=== PATIENT | female | born 2000 | race Caucasian/White ===

== ENCOUNTER → 2019-04-15 09:16 | Outpatient (BNVA) | payer OTHER, MEDICAID, SELFPAY | PROVIDERS: Family Provider Family Medicine; PCP Family Medicine; Visit Provider Nurse Practitioner Women's Health | DX: O99.89 Other specified diseases and conditions complicating pregnancy, childbirth and the puerperium (principal); Z04.89 Encounter for examination and observation for other specified reasons; R82.71 Bacteriuria; O21.9 Vomiting of pregnancy, unspecified | CPT/HCPCS: 84315 ==

== ENCOUNTER 2019-04-21 07:10 | Emergency (ER) | payer OTHER, MEDICAID, SELFPAY ==
[2019-04-21 07:16] VITALS: BMI 30.9
[2019-04-21 07:19] VITALS: BP 114/80; PULSE 108; RESP 16; TEMP 36.5; O2SAT 100
--- NOTE | 2019-04-21 07:30 | XR_ITS ---
WS: [id number] LEFT WRIST: 3 VIEW(S) TECHNIQUE: PA, oblique and lateral. HISTORY: fall/pain COMPARISON: 10/27/2014 No acute fracture or dislocation. There is a lucency through the distal navicular which does appear t o extend beyond the scaphoid. Additional imaging also submitted on the same day was negative for frac ture. No joint space abnormality. No soft tissue swelling. XR/XR wrist LT min 3V* [id number] IMPRESSION: Negative LEFT wrist.
--- NOTE | 2019-04-21 07:31 | ED_ITS ---
HPI - Extremity Problem General: Chief complaint: Extremity Injury, Upper Stated complaint: Left arm pain Time Seen by Provider: 04/21/19 07:16 History of Present Illness: HPI Narrative: 19-year-old female who comes in with left wrist pain after a fall while on the way to her car at home. She is approximately 24 to 26 weeks gestation she is not completely sure of the exact number of weeks. She denies any other injury when she fell she has some moderate swelling of her left wrist she has normal sensation is able to flex and extend at the base of the first metacarpal there is noticeable swelling and discomfort no obvious deformity. MD Complaint: extremity pain, extremity swelling and joint paint Onset (ago): hour(s) (Approximately 1 hour ago) Pain Consistency: constant Location: left and upper extremity (Wrist) Quality: aching Radiation: none Relieving factors: immobilization, elevation and rest Exacerbating factors: range of motion and palpation Associated symptoms: Reports no associated symptoms; Deny chest pain, fever(s) or rash Review of Systems Const: Denies: fever, chills, body aches, change in appetite, fatigue or malaise ENMT: Denies: throat pain, ear pain, nasal discharge or nasal congestion Card: Denies: chest pain, edema, shortness of breath on exertion or shortness of breath when lying down Resp: Denies: shortness of breath, productive cough or non-productive cough GI: Denies: abdominal pain, nausea, vomiting, vomiting blood, coffee grounds in vomit, diarrhea, constipation, bloating, blood in stool or black tarry stool : Denies: flank pain, difficulty urinating, painful urination, urinary frequency or urinary urgency Musc: Reports: extremity pain (Right wrist) Skin/Breast: Denies: rash or itching PFSH ED PFSH: Statuses (acute, chronic, etc) shown below reflect problem list status as previously entered and may not be historically accurate Medical History Asymptomatic bacteriuria during (Acute) Encounter for anatomic survey (Acute) Patient denies medical problems (Acute) Patient denies history of PE/DVT/clotting disorders, asthma, lung, liver heart, thyroid, kidney disease, hypertension or diabetes. Denies HSV for partner. PCP: Dr. 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 [employer] Additional social history: Well balanced diet Physical Exam Const: COMMON NORMALS: no apparent distress GENERAL APPEARANCE: cooperative and comfortable ORIENTATION/CONSCIOUSNESS: Yes awake, Yes oriented to person, Yes oriented to place and Yes oriented to time HENMT: COMMON NORMALS: normocephalic, head/scalp atraumatic, hearing grossly normal bilaterally, external ears normal, EAC's normal, TM's normal bilaterally, nasal mucous membranes and turbinates normal, moist oral mucous membranes and oropharynx normal HEAD & SCALP: normocephalic and atraumatic NOSE: nasal mucous membranes and turbinates normal EXTERNAL EAR: Yes external ears normal EXTERNAL AUDITORY CANAL: EAC's normal TYMPANIC MEMBRANE: TM's normal bilaterally Eye: COMMON NORMALS: PERRL, EOMs intact bilaterally, conjunctivae normal and no scleral icterus CONJUNCTIVA: Yes conjunctivae normal PUPIL: Yes PERRL Neck/C-Spine: COMMON NORMALS: full ROM, no lymphadenopathy, supple and no JVD Lymph: LYMPHATIC: no lymphadenopathy noted and no lymphedema noted Resp: COMMON NORMALS: normal respiratory effort, no retractions, no use of accessory muscles and clear to auscultation bilaterally AUSCULTATION: clear to auscultation bilaterally Cardio: COMMON NORMALS: no JVD, regular rate, regular rhythm and no murmurs RATE: regular rate RHYTHM: regular rhythm Extremity: COMMON NORMALS: no calf tenderness and no pedal edema RIGHT UPPER EXTREMITY: Yes wrist (Moderate swelling and discomfort at the base of the first metacarpal no pain in the anatomical snuffbox no pain with axial loading mild discomfort with flexion at the wrist. Pain is localized over the scapholunate area. X-rays do not show any fracture.) Neuro: SENSORIUM/ORIENTATION: Yes oriented to person, Yes oriented to place and Yes oriented to time Skin: COMMON NORMALS: no rashes or lesions noted GENERAL SKIN EXAM: no rashes or lesions noted Course Vital Signs: Vital signs: Vital Signs Temperature 97.7 F 04/21/19 07:19 Pulse Rate 84 04/21/19 08:23 Respiratory Rate 18 04/21/19 08:23 Blood Pressure 132/75 04/21/19 08:23 Pulse Oximetry 98 04/21/19 08:23 Discharge Plan Discharge Patient Disposition: Home, Self-Care Clinical Impression: Sprain and strain of left wrist Condition: Stable Prescriptions: No Action prenat.vits,maxx,[id number]-ibwcl Tablet 1 tab PO DAILY RF: 0 promethazine 25 mg tablet 25 mg PO TID PRNRF: 0 Referrals: Jazmine Castro DO [Primary Care Provider] - Activity Restrictions/Additional Instructions: Wrist brace as needed ice elevate [id number] Tylenol if not improving follow-up with your primary care physician for reevaluation. Discharge Date/Time: 04/21/19 08:23 Coding Level of Care Code ED Director Of Teenage Activities for [facility]
--- NOTE | 2019-04-21 07:34 | XR_ITS ---
WS: [id number] LEFT WRIST/scaphoid: 2 VIEW(S) TECHNIQUE: 2 views of the scaphoid are submitted. HISTORY: fall pain COMPARISON: None available. No acute fracture or dislocation. No joint space abnormality. No soft tissue swelling. XR/XR wrist LT w scaphoid [id number] IMPRESSION: No scaphoid fracture identified.
[2019-04-21 08:23] VITALS: BP 132/75; PULSE 84; RESP 18; O2SAT 98
== END 2019-04-21 08:23 | disposition home or self-care (01) ==
PROVIDERS: Emergency Provider Family Medicine; Family Provider Family Medicine; PCP Family Medicine
DX: O9A.212 Injury, poisoning and certain other consequences of external causes complicating pregnancy, second trimester (principal); S63.502A Unspecified sprain of left wrist, initial encounter; S66.912A Strain of unspecified muscle, fascia and tendon at wrist and hand level, left hand, initial encounter; Z3A.24 24 weeks gestation of pregnancy; W19.XXXA Unspecified fall, initial encounter
CPT/HCPCS: 73110; 99282

== ENCOUNTER → 2019-04-29 08:10 | Outpatient (BNVA) | payer OTHER, MEDICAID, SELFPAY | PROVIDERS: Family Provider Family Medicine; PCP Family Medicine; Visit Provider Obstetrics & Gynecology | DX: Z34.02 Encounter for supervision of normal first pregnancy, second trimester (principal) | CPT/HCPCS: 76816 ==

== ENCOUNTER → 2019-05-13 12:54 | Outpatient (BNVA) | payer OTHER, MEDICAID, SELFPAY | PROVIDERS: Family Provider Family Medicine; PCP Family Medicine; Visit Provider Obstetrics & Gynecology Female Pelvic Medicine and Reconstructive Surgery | DX: O36.5930 Maternal care for other known or suspected poor fetal growth, third trimester, not applicable or unspecified (principal); Z3A.28 28 weeks gestation of pregnancy; O99.89 Other specified diseases and conditions complicating pregnancy, childbirth and the puerperium | CPT/HCPCS: 82950; 84315; 85027 ==

== ENCOUNTER → 2019-05-27 10:45 | Outpatient (BNVA) | payer OTHER, MEDICAID, SELFPAY | PROVIDERS: Family Provider Family Medicine; PCP Family Medicine; Visit Provider Obstetrics & Gynecology Female Pelvic Medicine and Reconstructive Surgery | DX: Z34.02 Encounter for supervision of normal first pregnancy, second trimester (principal) | CPT/HCPCS: 81003 ==

== ENCOUNTER → 2019-06-03 13:10 | Outpatient (BNVA) | payer OTHER, MEDICAID, SELFPAY | PROVIDERS: Family Provider Family Medicine; PCP Family Medicine; Visit Provider Obstetrics & Gynecology | DX: Z36.89 Encounter for other specified antenatal screening (principal); Z3A.33 33 weeks gestation of pregnancy | CPT/HCPCS: 76816 ==

== ENCOUNTER → 2019-06-10 14:38 | Outpatient (BNVA) | payer OTHER, MEDICAID, SELFPAY | PROVIDERS: Family Provider Family Medicine; PCP Family Medicine; Referring Provider Obstetrics & Gynecology; Visit Provider Obstetrics & Gynecology | DX: Z36.89 Encounter for other specified antenatal screening (principal) | CPT/HCPCS: 76815 ==

== ENCOUNTER → 2019-06-13 08:03 | Outpatient (BNVA) | payer OTHER, MEDICAID, SELFPAY | PROVIDERS: Family Provider Family Medicine; PCP Family Medicine; Visit Provider Obstetrics & Gynecology | DX: Z01.89 Encounter for other specified special examinations (principal) | CPT/HCPCS: 84315 ==

== ENCOUNTER → 2019-06-17 15:40 | Outpatient (BNVA) | payer OTHER, MEDICAID, SELFPAY | PROVIDERS: Family Provider Family Medicine; PCP Family Medicine; Referring Provider Obstetrics & Gynecology; Visit Provider Obstetrics & Gynecology | DX: Z36.89 Encounter for other specified antenatal screening (principal) | CPT/HCPCS: 76815 ==

== ENCOUNTER → 2019-06-29 09:00 | Outpatient (BNVA) | payer OTHER, MEDICAID, SELFPAY | PROVIDERS: Visit Provider Obstetrics & Gynecology | DX: Z34.93 Encounter for supervision of normal pregnancy, unspecified, third trimester (principal); Z3A.34 34 weeks gestation of pregnancy | CPT/HCPCS: 76815 ==

== ENCOUNTER 2019-06-29 10:30 | Outpatient (CLI) | payer OTHER, MEDICAID, SELFPAY ==
[2019-06-29] VITALS (10 sets, daily range): BP systolic 102–142; BP diastolic 61–76; PULSE 65–100; RESP 18; TEMP 36.7; BMI 32.5
[2019-06-29 12:02] LABS: Basophils % 0.3 %; Eosinophils # 0.2 10^3/uL (0.0-0.8); Eosinophils % 3.4 %; Hematocrit 36.6 % (37.0-47.0); Lymphocytes # 1.4 10^3/uL (1.5-6.5); Lymphocytes % 19.9 %; Mean Corpuscular HGB Conc 32.8 g/dL (30.0-36.0); Mean Corpuscular Hemoglobin 28.2 pg (28.0-34.0); Mean Corpuscular Volume 86.1 fL (81-99); Mean Platelet Volume 11.2 fL (7.4-10.4); Monocytes # 0.6 10^3/uL (0.2-0.9); Monocytes % 7.8 %; Neutrophils # 4.8 10^3/uL (1.8-8.0); Neutrophils % 67.3 %; Nucleated Red Blood Cells % 0 %; Platelet Count 239 10^3/cmm (130-400); Red Blood Count 4.25 10^6/uL (4.1-5.3); Red Cell Distribution Width 12.3 % (12.1-15.1); White Blood Count 7.1 10^3/uL (4.5-13.0)
[2019-06-29 12:07] LABS: Specific Gravity, Urine 1.015 (1.005-1.030); Urine Appearance Clear (CLEAR); Urine Color Straw (Yellow)
[2019-06-29 12:08] LABS: Add Urine Microscopic? YES; Bilirubin Urine Neg (NEGATIVE); Blood Urine Neg (Negative); Glucose Urine UA Trace (Normal); Ketones Urine Negative (Negative); Leukocyte Esterase Urine 2+ (Negative); Nitrate Urine Negative (Negative); Protein Urine Neg (Negative); Urobilinogen Urine Norm (Negative)
[2019-06-29 12:43] LABS: Alanine Aminotransferase 15 U/L (0-33); Albumin Level 3.7 g/dL (3.5-5.2); Alkaline Phosphatase 180 IU/L (35-105); Anion Gap 13.2 (5-19); Aspartate Amino Transferase 22 U/L (0-32); Blood Urea Nitrogen 4 mg/dL (6-20); Calcium 9.1 mg/dL (8.5-10.5); Carbon Dioxide 22 mmol/L (22-29); Chloride 102 mmol/L (98-107); Globulin 3.6 g/dL (1.3-4.6); Glomerular Filtration Rate 157.3 mL/min (90-130); Glucose 91 mg/dL (65-115); Osmolality Calculated 273 mOsm/kg (285-295); Potassium 3.2 mmol/L (3.5-5.1); Sodium 134 mmol/L (136-145); Total Bilirubin 0.5 mg/dL (0.15-1.2); Total Protein 7.3 g/dL (6.6-8.7); Uric Acid 4.1 mg/dL (2.4-5.7)
[2019-06-29 12:53] LABS: Urine Creatinine 94 mg/dL (28-217); Urine Protein Random 7 mg/dL
[2019-06-29 12:57] LABS: UPRO/UCREAT Ratio 0.07 mg/mg CR
[2019-06-29 13:08] LABS: Add Urine Culture? No; Bacteria Urine 1+; Squamous Epithelial Cell Urine 55-80 (0-5); WBC Urine 0-4 /hpf (0-5)
--- NOTE | 2019-06-29 15:41 | P.TNLD_ITS ---
OB L&D Triage Visit Information: Date of evaluation: 06/29/19 Reason for evaluation: other Comments/Additional reason(s) for visit: pt with elevated BPs in office 160-170/100 to L&D for labs and observation. In L&D BPs normal, RNST, normal l abs Patient without Headache, visual changes RUQ pain, n&v HAS GOOD MOVEMENT. Evaluation: Baseline heart rate: 140 Variability: Moderate (11-25) monitor accelerations: Present 15x15 monitor decelerations: None Laboratory results: Laboratory Tests 06/29/19 06/29/19 06/29/19 11:39 11:39 11:45 WBC RBC Hgb Hct MCV MCH MCHC RDW Plt Count MPV Neut % (Auto) Lymph % (Auto) [place] % (Auto) Eos % (Auto) Baso % (Auto) Neut # (Auto) Lymph # (Auto) [place] # (Auto) Eos # (Auto) Baso # (Auto) Nucleated RBC % (a uto) Nucleated RBCs # Sodium 134 L Potassium 3.2 L Chloride 102 Carbon Dioxide 22 Anion Gap 13.2 BUN 4 L Creatinine 0.5 GFR Calculation 157.3 H Glucose 91 Calculated Osmolal ity 273 L Uric Acid 4.1 Calcium 9.1 Total Bilirubin 0.5 AST 22 ALT 15 Alkaline Phosphata se 180 H Total Protein 7.3 Albumin 3.7 Globulin 3.6 Urine Color Straw Urine Appearance Clear Urine pH 6.0 Ur Specific Gravit y 1.015 Urine Protein Neg Urine Glucose (UA) Trace H Urine Ketones Negative Urine Blood Neg Urine Nitrate Negative Urine Bilirubin Neg Urine Urobilinogen Norm Ur Leukocyte Kelly ase 2+ H Urine RBC None Urine WBC 0-4 H Ur Squamous Epith Cells 55-80 H Urine Bacteria 1+ H U Random Total Pro tein 7 Urine Creatinine 94 Protein/Creatinin Ratio 0.07 06/29/19 11:45 WBC 7.1 RBC 4.25 Hgb 12.0 Hct 36.6 L MCV 86.1 MCH 28.2 MCHC 32.8 RDW 12.3 Plt Count 239 MPV 11.2 H Neut % (Auto) 67.3 Lymph % (Auto) 19.9 [place] % (Auto) 7.8 Eos % (Auto) 3.4 Baso % (Auto) 0.3 Neut # (Auto) 4.8 Lymph # (Auto) 1.4 L [place] # (Auto) 0.6 Eos # (Auto) 0.2 Baso # (Auto) 0.0 Nucleated RBC % (a uto) 0 Nucleated RBCs # 0.0 Sodium Potassium Chloride Carbon Dioxide Anion Gap BUN Creatinine GFR Calculation Glucose Calculated Osmolal ity Uric Acid Calcium Total Bilirubin AST ALT Alkaline Phosphata se Total Protein Albumin Globulin Urine Color Urine Appearance Urine pH Ur Specific Gravit y Urine Protein Urine Glucose (UA) Urine Ketones Urine Blood Urine Nitrate Urine Bilirubin Urine Urobilinogen Ur Leukocyte Kelly ase Urine RBC Urine WBC Ur Squamous Epith Cells Urine Bacteria U Random Total Pro tein Urine Creatinine Protein/Creatinin Ratio Vital signs: Vital Signs - 24 hr 06/29/19 11:23 06/29/19 11:40 06/29/19 11:52 Temperature Pulse Rate 88 65 67 Respiratory Rate Blood Pressure 110/72 142/75 135/75 06/29/19 12:07 06/29/19 12:22 06/29/19 12:37 Temperature Pulse Rate 97 86 96 Respiratory Rate Blood Pressure 113/76 108/68 102/68 06/29/19 12:52 06/29/19 13:07 06/29/19 13:22 Temperature Pulse Rate 100 78 90 Respiratory Rate Blood Pressure 125/75 121/61 111/68 06/29/19 13:30 Temperature 98.0 F Pulse Rate 90 Respiratory Rate 18 Blood Pressure 111/68 Comments: pe: a&o nad heent WNL lUNGS cta hEART rsn aBD gravid, soft NT, no RUQ tenderness ext no swelling Patella DTR 2/4 Care LOTUS Calculator Estimated Delivery Date Method Current WG Current Estimate 08/04/19 LMP (Certain) 34w 6d Expected Delivery Route/Plan Vaginal Specific Issues/Plans Polyhydramnios diagnosed at 30 weeks-mild- OB Visit Log Initial Weight: 80.739 kg Date -?-?-?-?-?-?-?-?-?-?-?- EGA Weight BP Albumin -?-?-?-?-?-?-?-?-?-?-?-?- Glucose Nitrate -?-?--?-?-?-?-?-?-?-?-?-?- Blood Fun Ht PRES HR MVMT -?--?-?-?-?-?-?-?-?-?-?-?- Edema Dilation Effacement -?-?-?-?-?-?-?-?-?-?-?-?- Station 12/28/18 -?-?-?-?-?-?-?-?-?-?-?- 8w 5d 80.739 kg (+0 g) 122/80 neg -?-?-?-?-?-?-?-?-?-?-?-?- neg -?-?-?-?-?-?-?-?-?-?-?-?- -?-?-?-?-?-?-?-?-?-?-?-?- absent Not examined Not examined -?-?-?-?-?-?-?-?-?-?-?-?- 01/10/19 -?-?-?-?-?-?-?-?-?-?-?- 10w 4d 80.739 kg (+0 g) 132/80 neg -?-?-?-?-?-?-?-?-?-?-?-?- neg -?-?-?-?-?-?-?-?-?-?-?-?- 164 -?-?-?-?-?-?-?-?-?-?-?-?- absent Not examined Not examined -?-?-?-?-?-?-?-?-?-?-?-?- 01/24/19 -?-?-?-?-?-?-?-?-?-?-?- 12w 4d 79.832 kg (-907.185 g) 112/76 neg -?-?-?-?-?-?-?-?-?-?-?-?- neg -?-?-?-?-?-?-?-?-?-?-?-?- 149 -?-?-?-?-?-?-?-?-?-?-?-?- absent Closed Uneffaced -?-?-?-?-?-?-?-?-?-?-?-?- 02/22/19 -?-?-?-?-?-?-?-?-?-?-?- 16w 5d 83.007 kg (+2.268 kg) 116/80 neg -?-?-?-?-?-?-?-?-?-?-?-?- neg -?-?-?-?-?-?-?-?-?-?-?-?- 141 -?-?-?-?-?-?-?-?-?-?-?-?- absent Not examined Not examined -?-?-?-?-?-?-?-?-?-?-?-?- 03/21/19 -?-?-?-?-?-?-?-?-?-?-?- 20w 4d 86.092 kg (+5.352 kg) 118/72 neg -?-?-?-?-?-?-?-?-?-?-?-?- neg -?-?-?-?-?-?-?-?-?-?-?-?- 20 150 Not detected -?-?-?-?-?-?-?-?-?-?-?-?- absent Not examined Not examined -?-?-?-?-?-?-?-?-?-?-?-?- 04/13/19 -?-?-?-?-?-?-?-?-?-?-?- 23w 6d -?-?-?-?-?-?-?-?-?-?-?-?- -?-?-?-?-?-?-?-?-?-?-?-?- -?-?-?-?-?-?-?-?-?-?-?-?- -?-?-?-?-?-?-?-?-?-?-?-?- 04/15/19 -?-?-?-?-?-?-?-?-?-?-?- 24w 1d 89.811 kg (+9.072 kg) 128/90 Neg (Negativ e) -?-?-?-?-?-?-?-?-?-?-?-?- Norm (Normal) Negative (Negat sg) -?-?-?-?-?-?-?-?-?-?-?-?- 25 140 active -?-?-?-?-?-?-?-?-?-?-?-?- absent n/a -?-?-?-?-?-?-?-?-?-?-?-?- 05/13/19 -?-?-?-?-?-?-?-?-?-?-?- 28w 1d 89.811 kg (+9.072 kg) 108/74 Neg (Negativ e) -?-?-?-?-?-?-?-?-?-?-?-?- Norm (Normal) Negative (Negat sg) -?-?-?-?-?-?-?-?-?-?-?-?- 30 152 active -?-?-?-?-?-?-?-?-?-?-?-?- 1+ absent -?-?-?-?-?-?-?-?-?-?-?-?- 05/27/19 -?-?--?-?-?-?-?-?-?-?-?- 30w 1d 93.44 kg (+12.701 kg) 132/80 Neg (Negati ve) -?-?-?-?-?-?-?-?-?-?-?-?- Norm (Normal) Negative (Negat sg) -?-?-?-?-?-?-?-?-?-?-?-?- Neg (Negative) 33 Vertex 127 active -?-?-?-?-?-?-?-?-?-?-?-?- absent n/a -?-?-?-?-?-?-?-?-?-?-?-?- 06/13/19 -?-?-?-?-?-?-?-?-?-?-?- 32w 4d 93.894 kg (+13.154 kg) 136/82 Neg (Negati ve) -?-?-?-?-?-?-?-?-?-?-?-?- Norm (Normal) Negative (Negat sg) -?-?-?-?-?-?-?-?-?-?-?-?- Neg (Negative) 33 143 act sg -?-?-?-?-?-?-?-?-?-?-?-?- absent N/A -?-?-?-?-?-?-?-?-?-?-?-?- 06/29/19 -?-?-?-?-?-?-?-?-?-?-?- 34w 6d 94.801 kg (+14.061 kg) 164/110 172/108 172/114 Neg (Negative) -?-?-?-?-?-?-?-?-?-?-?-?- Norm (Normal) Negative (Negat sg) -?-?-?-?-?-?-?-?-?-?-?-?- Neg (Negative) 34.5 - 129 active -?-?-?-?-?-?-?-?-?-?-?-?- n/a -?-?-?-?-?-?-?-?-?-?-?-?- 06/29/19 -?-?-?-?-?-?-?-?-?-?-?- 34w 6d 94.347 kg (+13.608 kg) 110/72 142/75 135/75 113/76 108/68 102/68 125/75 121/61 111/68 111/68 Neg (Negative) -?-?-?-?-?-?-?-?-?-?-?-?- Trace (Normal) H Negative (Ne gative) -?-?-?-?-?-?-?-?-?-?-?-?- Neg (Negative) 130 -?-?-?-?-?-?-?-?-?-?-?-?- -?-?-?-?-?-?-?-?-?-?-?-?- Notes Visit Date: 06/29/19 No visit notes to display Visit Date: 06/29/19 No visit notes to display Visit Date: 06/13/19 PERRY @ 32w4d------> no complaints; asymptomatic bacteria's-status post negative test of cure-no intervention; questionable concern about asymmetrical growth-largely within normal limits based on sonogram on 06/03/2019- growth 69 percentile-no concern for IUGR at this time; mild polyhydramnios with [employer] staying stable between 89-55-ogqbhhz jbfuhojhx-vkyryp-fq RAMIRO in 1 week; Tdap recommended, contraception, circumcision and encapsulator discussed briefl y-we will reassess at next visit; weight gain goals reviewed; discomforts of and symptomatic management discussed. Shy Mcgraw MD on 06/13/19 Visit Date: 05/27/19 No visit notes to display Visit Date: 05/13/19 No visit notes to display Visit Date: 04/15/19 PERRY and 24.1 WG-----> -asymptomatic bacteriuria with test of cure at 16 weeks; resolved. Nonvisualized anatomy during 20 weeks sono; repeat scan at 26 weeks to follow-up on four-chamber heart and placental assessment. Flu vaccine discussed and encouraged. labor precautions and kick counts discussed. education classes discussed and encouraged; schedule provided. Symptomology of late second trimester discussed. BC, GCT at next visit Jazmine Pickens APN, GLENN on 04/15/19 Visit Date: 04/13/19 Preload Jazmine Dominguez RN on 04/13/19 Visit Date: 03/21/19 PERRY at 20 4/7 weeks. The patient was counseled regarding care, signs and symptoms of labor. Visit Date: 02/22/19 PERRY @ 16.5 WG - UTI early in ; LASHON today - nausea; managed with prn phenergan; continue for now - SAB precautions discussed - QUAD PANORAMA; declined - GC/chlamydia were negative; discussed today - Flu vaccine discussed and encouraged now - Anatomy scan at 20-22 weeks Visit Date: 01/24/19 OB exam at 12 weeks and 4 days----> no complaints; nausea and vomiting improved with medication; asymptomatic bacteriuria status post antibiotics-test of cure at 16 weeks; labs normal; gonorrhea and Chlamydia done today Visit Date: 01/10/19 Initial OB visit at 10 weeks and 4 days-----> unsure LMP-dating sonogram ordered; labs drawn; gonorrhea and Chlamydia at next visit; declined cystic fibrosis and NIPT; nausea and vomiting-description medication called in-call in one week with update on symptoms Visit Date: 12/28/18 OBI at 8.5 WG-----------> 18 y/o with LMP of 10/28/18 (unsure) and EDC of 08/04/2019 based this guestimate lmp. - unknown LMP; knows her last period was around 10/28 to 11/06;EDC based off 10/28 lmp;sarah will discuss with her next visit - mild nausea; dietary medical management discussed. -Ob packet provided. Reviewed routine vist schedule, labs, approved medications in , discussed the importance of avoiding nicotine/alcohol/drugs and the effects this has on her and the , and when to notify the doctor. Medical and obstetrical history reviewed. ? -Continue vitamins. - labs at next visit; discussed NIPT, QUAD, AFP, CF. All questions answered to her satisfaction. Greater than 50% of the visit was spent in counseling and coordinating obstetrical care. Final Diagnosis Final Diagnosis (1) Elevated blood pressure reading: Plan: patent with elevated ABP in office, normal n L&D. home with BP cuff, take BP BID anf record. rest at home, no wwork for 72 hours. follow up in office Thursday. Status: Acute Code(s): R03.0 - Elevated blood-pressure reading, without diagnosis of hypertension (2) related conditions, unspecified, third trimester: Status: Acute Code(s): O26.93 - related conditions, unspecified, third trimester Coding Level of Care Code Acute Hardware Test Engineer for Chg Fwd History Expanded Problem Focused Exam Expanded Problem Focused Medical Decision Making Moderate Complexity Diagnoses Elevated blood pressure reading R03.0 related conditions, unspecified, third trimester O26.93 Time Spent (min) 35 Comment >50% face-face time counseling possible hypertension in .
== END 2019-06-29 13:30 | disposition home or self-care (01) ==
LOC: OPOB 10:45 → OBGYN 10:46
PROVIDERS: Visit Provider Obstetrics & Gynecology Female Pelvic Medicine and Reconstructive Surgery
DX: O16.9 Unspecified maternal hypertension, unspecified trimester (principal); Z3A.00 Weeks of gestation of pregnancy not specified
CPT/HCPCS: 12345; 36415; 59025; 80053; 81001; 82570; 84156; 84315; 84550; 85025; 99211

== ENCOUNTER → 2019-07-06 08:58 | Outpatient (BNVA) | payer OTHER, MEDICAID, SELFPAY | PROVIDERS: Visit Provider Obstetrics & Gynecology | DX: O40.9XX0 Polyhydramnios, unspecified trimester, not applicable or unspecified (principal) | CPT/HCPCS: 76815 ==

== ENCOUNTER → 2019-07-13 09:50 | Outpatient (BNVA) | payer OTHER, MEDICAID, SELFPAY | PROVIDERS: Visit Provider Obstetrics & Gynecology | DX: Z34.93 Encounter for supervision of normal pregnancy, unspecified, third trimester (principal); Z34.90 Encounter for supervision of normal pregnancy, unspecified, unspecified trimester; Z34.02 Encounter for supervision of normal first pregnancy, second trimester; R03.0 Elevated blood-pressure reading, without diagnosis of hypertension; O40.9XX0 Polyhydramnios, unspecified trimester, not applicable or unspecified | CPT/HCPCS: 84315; 87081 ==

== ENCOUNTER → 2019-07-20 09:41 | Outpatient (BNVA) | payer OTHER, MEDICAID, SELFPAY | PROVIDERS: Visit Provider Obstetrics & Gynecology | DX: O40.9XX0 Polyhydramnios, unspecified trimester, not applicable or unspecified (principal); R03.0 Elevated blood-pressure reading, without diagnosis of hypertension | CPT/HCPCS: 81000 ==

== ENCOUNTER → 2019-07-26 11:59 | Outpatient (BNVA) | payer OTHER, MEDICAID, SELFPAY | PROVIDERS: Visit Provider Obstetrics & Gynecology | DX: Z34.02 Encounter for supervision of normal first pregnancy, second trimester (principal); O40.9XX0 Polyhydramnios, unspecified trimester, not applicable or unspecified; R03.0 Elevated blood-pressure reading, without diagnosis of hypertension | CPT/HCPCS: 81000 ==

== ENCOUNTER 2019-08-01 18:59 | Inpatient (IN) | payer OTHER, MEDICAID, SELFPAY ==
[2019-08-01] VITALS (18 sets, daily range): BP systolic 0–132; BP diastolic 0–78; PULSE 55–94; RESP 16; TEMP 36.8; BMI 33.6
[2019-08-01] MEDS: lactated ringers 1,000 ML 999 ML IV (20:25)
[2019-08-01 20:38] LABS: Basophils % 0.4 %; Eosinophils # 0.4 10^3/uL (0.0-0.8); Eosinophils % 4.2 %; Hematocrit 33.5 % (37.0-47.0); Hemoglobin 11.2 g/dL (11.5-15.3); Lymphocytes # 2.5 10^3/uL (1.5-6.5); Mean Corpuscular HGB Conc 33.4 g/dL (30.0-36.0); Mean Corpuscular Hemoglobin 27.7 pg (28.0-34.0); Mean Corpuscular Volume 82.9 fL (81-99); Mean Platelet Volume 11.9 fL (7.4-10.4); Monocytes # 0.9 10^3/uL (0.2-0.9); Monocytes % 9.8 %; Neutrophils # 5.6 10^3/uL (1.8-8.0); Neutrophils % 58.6 %; Nucleated Red Blood Cells % 0 %; Platelet Count 211 10^3/cmm (130-400); Red Blood Count 4.04 10^6/uL (4.1-5.3); Red Cell Distribution Width 13.1 % (12.1-15.1); White Blood Count 9.6 10^3/uL (4.5-13.0)
[2019-08-01] MEDS: dextrose 5%-lactated ringers 1,000 ML 75 ML IV (20:59)
[2019-08-01] MEDS: miSOPROStol 100 mcg tablet 25 MCG VAGINAL (20:59)
[2019-08-02] VITALS (150 sets, daily range): BP systolic 0–141; BP diastolic 0–79; PULSE 53–90; RESP 16–18; TEMP 36.7–36.8; O2SAT 84–100
[2019-08-02] MEDS: miSOPROStol 100 mcg tablet 25 MCG VAGINAL ×2 (01:01→07:45)
[2019-08-02] MEDS: morphine 4 mg/mL SDV 1 mL 8 MG IM (01:14)
[2019-08-02] MEDS: promethazine 25 mg/mL SDV 1 mL IM (01:14)
--- NOTE | 2019-08-02 07:42 | P.PN_ITS ---
Subjective Subjective: Interval history: Ms. Pollack is a 19-year-old 1 para 0 at 39 weeks and 5 days gestation who presented to labor and delivery for cervical ripening on 08/01/2019. She had a very unfavorable cervix-fingertip, 20% effaced and firm and at her last visit we had discussed the advantages versus disadvantages of cervical ripening versus allowing time for the cervix to soften naturally. Patient wanted to try cervical ripening as she was disheartened by the fact that her cervix was not very favorable. When she presented to labor and delivery on 08/01/2019 she had made very minimal cervical change and was fingertip, 20% and -3 station, cephalic. Cervical ripening was started with Cytotec and she received a total of 3 doses of Cytotec-last dose being placed at 7:30 AM on 08/02/2019. During this time she made some cervical change and prior to the third dose of Cytotec she was 1 cm, 50% and -3 station and the cervix was average in consistency. tracing had been overall category 1 except for. At about 3 AM after patient use the bathroom but there was some area of minimal variability. This was thought to be possibly secondary to the Phenergan morphine sleeper that the patient received and tracing improved to a category 1 tracing with oxygen and position changes. Vitals/I&O/Wt Last Vital Signs Temp 98.2 F 08/02/19 05:24 Pulse 72 08/02/19 07:38 Resp 16 08/02/19 05:24 BP 102/57 08/02/19 07:38 08/01/19 08/02/19 08/02/19 22:59 06:59 14:59 Intake Total 690.25 / 690.25 412.5 / 1102.75 Balance 690.25 / 690.25 412.5 / 1102.75 Weight last 48 hrs Weight 215 lb Physical Exam Narrative: EXAM NARRATIVE: Abdomen-gravid, nontender, cephalic by Siva Sterile vaginal exam-1 cm, 50%, -3 station, average consistency EFM-120, moderate variability, accelerations, no decelerations [place]-contractions every 3 to 7 minutes Data : 08/01/19 20:14 A&P Assessment and plan (1) Elective induction of labor planned: Status: Acute Additional A&P Information -19-year-old 1 para 0 at 39 weeks and 5 days gestation -Elective induction of labor/cervical ripening due to unfavorable cervix -GBS negative -Has made some cervical change and some cervical ripening overnight with 2 doses of Cytotec however she is definitely not in labor at this time -Reviewed that there was a questionable area of minimal variability overnight however that has since resolved and the tracing has been category 1 thus far. I reviewed the course of cervical ripening with patient. I discussed we can do another 12 hours of medicine and if by 5 PM tonight she is not an active labor and has not made sufficient cervical change I would recommend discharge home and possibly bringing her back in 2 to 4 days for a longer induction of labor. -A lot of time spent counseling and offering support to the patient. -We will place the dose of Cytotec at 7:30 AM and will reassess at 1130 and see what happens. Patient allowed a tray of clears. Attestations Medical Necessity Statement*: Patient undergoing cervical ripening. Currently under observation status however if she make cervical change will be admitted to labor and delivery in labor. If she delivers her care will definitely cross 2 midnights in terms of recovery from delivery. Coding Level of Care Code Acute Sneller Hand for Chg Fwd Diagnoses Elective induction of labor planned Results OB Labs 01/10/2019 Blood type: O positive Antibody screen : Negative Intake CBC: 8.1<14.1/40.2> 226 Cystic fibrosis: Declined Rubella : Immune Hepatitis B surface antigen: Nonreactive Hepatitis C antibody: Nonreactive RPR: Nonreactive HIV: Nonreactive Drug screen: Negative Urine culture: 10,000-20,000 Staphylococcus saprophiticus--prescription Macrobid called in nipt: Declined 01/24/2019 Gonorrhea: negative Chlamydia: negative Pap smear: To be done in 2019 at the age of 20 02/22/2019 Quad screen: Declined Urine culture: Test of cure: 10,000-20,000 mixed colonies; contaminants 05/13/2019 28 week CBC: 8.8 <12.4/37.6>216 GCT: 131 07/13/2019 GBS: negative PAP Pap smear due in December 2019 when she is 20 years old. OB Ultrasound LMP-10/28/2018 LOTUS by LMP-08/04/2019 1) 01/19/2019([facility]-dating) AUA-12w4d LOTUS by sono-07/30/2019 S=D ---------> single live intrauterine , positive heart beat, positive movement, bilateral ovaries appeared normal, no free fluid. 2. 03/18/2020([facility]-anatomy) AUA-20-5/7 WG LOTUS by sono- 07/31/2019. S=D EFW 13 oz (367 g) 73% Normal anatomic survey EXCEPT for poor visualization of heart. Male. Breech. FHR 140 bpm. Anterior placenta without previa. Placental grade 1. Visually normal amniotic fluid volume. [employer] 7.4 cm. Cervix 3.7 cm, closed 3) 04/29/2019([facility]) AUA-27w4d LOTUS by sono-07/25/2019 S=D - single live intrauterine , cephalic, male, anterior grade 1 placenta without previa, FH-137, cervix closed-7 cm, four-chamber view of heart visualized-this completes anatomy review, RAMIRO 23.9 cm, EFW-948 g, 55 percentile. 3 weeks discrepancy between head measurements and abdominal circumference-poss ible IUGR-recommend further monitoring 4) 06/03/2019([facility]-f/u growth) AUA-33w0d LOTUS by sono-07/22/2019 S=D ------> single live intrauterine , cephalic, male, anterior grade 1 placenta without previa, EFW 1895 g, 69th percentile, RAMIRO 25.1 cm, [employer]-8.6 cm-polyhydramnios. Appropriate interval growth since last sonogram. 5) 06/10/2019 ([facility] fluid) -RAMIRO-26.21 cm, [employer]-11.3-stable polyhydramnios. Cephalic, anterior grade 1-2 placenta, cervix closed
[2019-08-02] MEDS: dextrose 5%-lactated ringers 1,000 ML 125 ML IV ×2 (12:09→19:32)
--- NOTE | 2019-08-02 12:49 | P.ANESASSM_ITS ---
Pre-Anesthetic Assessment Pre-Anesthetic Assessment: Height/Weight: Height 1.7 m Weight 97.522 kg Temp Pulse Resp BP 98.3 F 69 17 127/77 08/02/19 10:08 08/02/19 12:17 08/02/19 10:08 08/02/19 12:17 Preop Diagnosis: Intrauterine Proposed Procedure: Labor epidural Familial anesthetic complications: denies Was Beta Arron taken within 24 hours: N/A Last Intake: 02:00 Social: Social History: No alcohol and No tobacco Exam: Pre-Anes Outpt Exam: alert and oriented x 3 Airway: Submandibular: WNL Cervical ROM: WNL MP: 3 History/ROS: No significant history except as noted Pulmonary: Pulmonary: None reported CV/HEM: CV/HEM: HTN and Murmur (at , states no issues now) : : None reported Hepatic: Hepatic: None reported GI: GI: GERD Musc/skel: Musc/skel: None reported Neuropsych: Neuropsych: None reported Anesthetic Plan: ASA status: 2 Anesthesia: Anesthesia Evaluation and Regional (specify below) Meds/Allergies Current Medications: Current Medications Generic Name Dose Route Start Last Admin Trade Name Freq PRN Reason Stop Dose Admin Dextrose/Lactated Ringer's 1,000 mls @ 75 ml s/hr 08/01/19 19:58 08/02/19 12:09 Dextrose 5%-Lact ated Ringers IV 125 mls/hr .[id number] PRN Administration per label comment s PFSH Anesthesia PFSH: Social History Smoking and tobacco status: never smoked Alcohol intake: never Additional social history: - Tobacco use: Denies Alcohol use: Denies Drug use: Denies 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
[2019-08-02] MEDS: oxytocin 30 UNIT/500 ML BAG IV (13:50)
[2019-08-02 16:18] LABS: Actim Prom Positive
[2019-08-02] MEDS: lactated ringers 1,000 ML 999 ML IV (18:10)
[2019-08-02] MEDS: ondansetron 2 mg/ML SDV 2 mL 4 MG IVP (18:15)
--- NOTE | 2019-08-02 18:50 | ANES.PROC ---
Anesthesia Procedures Procedure/Date: 08/02/19 Epidural: Time Out Performed: Yes Consents Signed: Procedure Consent and NPO Consent Consent: requested by attending/covering physician, risks and benefits reviewed and patient agrees to proceed Lumbar Level: L3-L4 Epidural position: sitting Epidural procedure: sterile prep of area, 18 g needle (L3-L4), negative for paresthesia passed, neg for paresthesia, test dose given, 1.5% xylocaine 1:200k epi, 0.2% Ropivacaine bolus ml ( cc), placed PCEA, no systemic response and 0.2% Ropiavacaine @ mls/hr (13 mls/hr ) Additional Comments: ORBBY at 8 cm, catheter threaded to 14 cm at skin. Pt states pain has improved. VSS see OBYX
[2019-08-03] VITALS (21 sets, daily range): BP systolic 0–142; BP diastolic 0–72; PULSE 64–106; RESP 15–18; TEMP 36.7–36.9; O2SAT 97–99
--- NOTE | 2019-08-03 01:09 | PM.DELIVERY ---
 Delivery Note: Date of delivery: August 03, 2019 Pre-delivery diagnoses: Term at 39-5/7 weeks gestation Post-delivery diagnoses: 1. Term at 39-6/7 weeks gestation, 2. Viable male infant. Procedure: Sponataneous vaginal delivery Op report anesthesia: Epidural Delivering Physician: Tomas Brennan MD Estimated blood loss (mL): 150 Pre-Delivery Course: Patient is a 19-year-old white female 1, para 0 with an LMP of 10/28/2018 and an EDC of 08/04/2019 based on LMP and consistent with 12-week ultrasound, which placed her at 39-4/7 weeks gestation at the time of admission. She presented to labor and delivery on 08/01/2019 for Cytotec cervical ripening due to term . She received a total of 3 doses of Cytotec through the night. By around noon the next day she had made very minimal cervical change from a dilation standpoint and was then started on Pitocin. She became more uncomfortable through the afternoon. She had spontaneous rupture of membranes at 15:24 and later had epidural placed. She then rapidly progressed after that and was found to be completely dilated at 20:28. She was too numb to adequately push and as a result epidural was turned down and she labored down on her own. Patient had occasional episodes of decelerations which would resolve with position changes. Delivery: Patient started pushing at 23:31 and delivered at 00:31 on 08/03/2019 as a spontaneous vaginal delivery of an occiput anterior male over an intact perineum under epidural anesthesia. Following delivery of the 's head one loop of nuchal cord was noted and easily reduced. Rest the infant delivered atraumatically with the left shoulder anterior. Infant was placed on the mother's abdomen where it was left in the care of the waiting nurses. It was spontaneously crying. Cord was clamped. It was cut by the reported father of the baby. Cord blood was obtained. Pitocin bolus was started. Placenta delivered intact by simple expression at 00:34. Cervix and vagina were palpated and noted to be intact. The labia were inspected and noted to be intact except for bilateral periurethral lacerations which were superficial and required no repair and a minimal second-degree midline hymenal ring laceration which was bleeding and was repaired with 3-0 Vicryl suture. FINDINGS 1. Viable male infant weighing 7 pounds 5 ounces (3320 g) with a length of 20 inches and Apgars of 8 at 1 minute and 9 at 5 minutes. 2. Three-vessel cord with one loop of nuchal cord noted. 3. Normal-appearing placenta with an eccentric cord insertion. Post-Delivery Status: Mother and infant were left to recover in satisfactory condition. A&P Assessment and plan (1) Elective induction of labor planned: Status: Acute Coding Level of Care Code Acute Vessel Ordinary Seaman for g Fwd Diagnoses Elective induction of labor planned
[2019-08-03] MEDS: lanolin oint 7 gm 1 APPLIC TOPICAL (10:20)
[2019-08-03] MEDS: benzocaine-menthol 78 gm Canister 1 SPRAY TOPICAL (10:20)
[2019-08-03] MEDS: docusate sodium 100 mg Capsule PO ×2 (10:21→21:39)
[2019-08-03] MEDS: prenatal vitamin Capsule 1 CAP PO (10:21)
[2019-08-03 14:31] LABS: Hematocrit 32.4 % (37.0-47.0); Hemoglobin 10.6 g/dL (11.5-15.3); Mean Corpuscular HGB Conc 32.7 g/dL (30.0-36.0); Mean Corpuscular Hemoglobin 27.7 pg (28.0-34.0); Mean Corpuscular Volume 84.6 fL (81-99); Mean Platelet Volume 12.3 fL (7.4-10.4); Platelet Count 198 10^3/cmm (130-400); Red Blood Count 3.83 10^6/uL (4.1-5.3); Red Cell Distribution Width 13.4 % (12.1-15.1); White Blood Count 14.5 10^3/uL (4.5-13.0)
--- NOTE | 2019-08-04 02:40 | PC.NURSE ---
Assisited with getting the baby to latch onto right breast. Baby is sleepy and is not nursing in an aggressive manner. Mom educated on other techniques to get baby to latch onto breast.
[2019-08-04 03:50] VITALS: BP 117/73; PULSE 56; RESP 16; TEMP 36.5; O2SAT 99
--- NOTE | 2019-08-04 07:58 | PM.PN ---
Subjective Subjective: Interval history: Denies any complaints this morning. Reports pain is been well controlled. Denies any lightheadedness or dizziness with ambulation. Denies any shortness of breath or chest pains. Reports tolerating a regular diet without nausea or vomiting. Denies any problems with urination. Reports bleeding is a bout like an average menses in amount. Vitals/I&O/Wt Last Vital Signs Temp 97.7 F 08/04/19 03:50 Pulse 56 L 08/04/19 03:50 Resp 16 08/04/19 03:50 BP 117/73 08/04/19 03:50 Pulse Ox 99 08/04/19 03:50 08/03/19 08/04/19 08/04/19 22:59 06:59 14:59 Intake Total 500 / 1700 800 / 2500 Balance 500 / 1700 800 / 2500 Physical Exam Const: COMMON NORMALS: no apparent distress, average body habitus, alert and well nourished GENERAL APPEARANCE: well developed ORIENTATION/CONSCIOUSNESS: Yes oriented to person, Yes oriented to place and Yes oriented to time Resp: COMMON NORMALS: normal respiratory effort and clear to auscultation bilaterally AUSCULTATION: clear to auscultation bilaterally Cardio: COMMON NORMALS: regular rate, regular rhythm, no gallops and no rub RATE: regular rate RHYTHM: regular rhythm GI: COMMON NORMALS: soft to palpation, non-tender, no hepatosplenomegaly and no masses (Except for nontender uterus, approximately 2 fingerbreadths below umbilicus) AUSCULTATION: Yes normoactive bowel sounds PALPATION: Yes soft, Yes no hepatosplenomegaly and No hernia : EXTERNAL FEMALE EXAM: No hernia Extremity: COMMON NORMALS: no calf tenderness Neuro: SENSORIUM/ORIENTATION: Yes alert, Yes oriented to person, Yes oriented to place and Yes oriented to time Psych: COMMON NORMALS: affect normal MOOD & AFFECT: Yes euthymic mood Data : 08/03/19 13:45 A&P Assessment and plan (1) Vaginal delivery: day 1, status post vaginal delivery. Patient doing well overall. Encouraged ambulation. Continue with present management. Baby is not being released due to feeding difficulties and elevated bilirubin. Baby is being placed under bili lights this morning. As a result, mother is currently staying with the baby. Status: Acute Attestations Medical Necessity Statement*: She is 1 day post delivery. Baby is not being released. Coding Level of Care Code Acute Fuel Pilot Engineer for Chg Fwd Diagnoses Vaginal delivery O80
[2019-08-04] MEDS: docusate sodium 100 mg Capsule PO ×2 (09:27→21:07)
[2019-08-04] MEDS: prenatal vitamin Capsule 1 CAP PO (09:27)
[2019-08-04 09:32] VITALS: BP 122/78; PULSE 106; RESP 18; TEMP 36.6; O2SAT 99
[2019-08-04 16:00] VITALS: BP 122/82; PULSE 96; RESP 16; TEMP 36.8; O2SAT 98
[2019-08-04 21:52] VITALS: BP 122/82; PULSE 63; RESP 16; TEMP 36.7; O2SAT 100
[2019-08-05 05:15] VITALS: BP 119/76; PULSE 66; RESP 16; TEMP 36.5; O2SAT 99
--- NOTE | 2019-08-05 08:10 | P.DS_ITS ---
Discharge Providers Date of Admission: 08/02/19 13:42 Date of Discharge: August 05, 2019 Attending Provider at Admission: Shy Mcgraw MD Attending Provider at Discharge: Tomas Brennan MD Primary Care Provider: OCTAVIO ERNANDEZ Diagnoses at Discharge Discharge Diagnosis (1) Vaginal delivery: Status: Resolved Reason for Visit Reason for Visit: Reason For Visit: induction Hospital Course Hospital Course: Patient is a 19-year-old white female 1, para 0 with an LMP of 10/28/2018 and an EDC of 08/04/2019 based on LMP and consistent with a 12- week ultrasound. This placed her at 39-4/7 weeks gestation at the time of admission. Patient presented to labor and delivery on 08/01/2019 for Cytotec cervical ripening due to term . She received a total of 3 doses of Cytotec 25 mcg vaginally through the night. By approximately noon the next day she had made very minimal cervical change and was started on Pitocin. She became more uncomfortable with this and by approximately 15:30 she had spontaneous rupture of membranes. She then later had epidural placed. Following the epidural she started rapidly progressing and was found to be completely dilated by 20:28. During the labor course patient had occasional episodes of decelerations which resolved with position changes. She was initially too numb to adequately push and was allowed to labor down as the epidural was decreased. She started pushing at 23:31 and delivered at 00:31 on 08/02 as a spontaneous vaginal delivery of an occiput anterior male over an intact perineum under epidural anesthesia. Placenta delivered intact by simple expression. She had bilateral periurethral lacerations which were superficial and required no repair and a minimal second-degree midline hymenal ring laceration which was repaired. The baby weighed 7 pounds 5 ounces (3320 g) with a length of 20 inches and Apgars of 8 at 1 minute and 9 at 5 minutes. DAY 1 (08/03) Patient reported doing well. Her pain was well controlled. She was ambulating without lightheadedness or dizziness. She denied shortness of breath or chest pains. She was tolerating a regular diet without nausea or vomiting. She denied problems with urination. Her bleeding was slowing down. She was afebrile with stable vital signs. Baby was having difficulties with feeding and had elevated bilirubin. It was being placed under bili lights. Since she was breast-feeding, she was kept in the hospital for another day. DAY 2 (08/04) Patient reports that she is continuing to do well. Her pain remains well controlled. She reports tolerating a regular diet without nausea vomiting. She denied lightheadedness or dizziness with ambulation. She denied shortness of breath or chest pains. She denied problems with urination. Breast-feeding had improved. Baby was also doing better. Physical Exam: See below Plan Discharge to home. Discharge instructions discussed with patient. Patient instructed to follow-up in the office in approximately 6 weeks after discharge. Physical Exam Const: COMMON NORMALS: no acute distress, average body habitus, alert and well nourished GENERAL APPEARANCE: well developed ORIENTATION/CONSCIOUSNESS: Yes oriented to person, Yes oriented to place and Yes oriented to time GI: COMMON NORMALS: Soft to palpation, non-tender, No hepatosplenomegaly present and no masses (except for nontender uterus, 2 fingerbreaths below umbilicus) AUSCULTATION: Yes normoactive bowel sounds PALPATION: Yes Soft to palpation, Yes No hepatosplenomegaly present and No Hernia present : EXTERNAL FEMALE EXAM: No Hernia present Neuro: SENSORIUM/ORIENTATION: Yes alert, Yes oriented to person, Yes oriented to place and Yes oriented to time Psych: COMMON NORMALS: normal affect MOOD & AFFECT: Yes euthymic mood Discharge Data Vitals: Last Vital Signs Temp 97.7 F 08/05/19 05:15 Pulse 66 08/05/19 05:15 Resp 16 08/05/19 05:15 BP 119/76 08/05/19 05:15 Pulse Ox 99 08/05/19 05:15 Discharge Plan Discharge Patient Disposition: Home, Self-Care Condition: Stable Prescriptions: Continued prenat.vits,maxx,[id number] Tablet 1 tab PO DAILY RF: 0 Discharge Orders: Discharge Order (Routine); Ordered 08/05/19 Ordered By: Tomas Brennan Referrals: Shy Mcgraw MD [Physician] - 09/13/19 12:30 pm ( exam) Discharge Diet: Regular Discharge Activity: Limit activity as instructed Patient Instructions: Your Baby (GEN), and the Working Mom (GEN), Expression, Collection and Storage of Breastmilk (GEN), How to Hold and Breastfeed Your Baby (GEN), and Nipple Soreness (GEN), Breast Fullness Versus Breast Engorgement (GEN), How to Tell if Your Baby is Getting Enough Breast Milk (GEN), and Your Diet (GEN), How Long Should I Breastfeed and How do I Wean? (GEN), Breast Care for the Breast Feeding Mother (GEN), OB Discharge Report, OB Food/Drug Interaction Guide, OB Vaginal Deliveries - [facility] Activity Restrictions/Additional Instructions: [id number] Ibuprofen 200 mg, 3 tablets four times a day or 4 tablets three times a day, as needed for pain Discharge Date/Time: 08/05/19 09:20 Discharge Attestations Time Spent in Discharge Care*: less than 30 min Quality Metrics Clinical Quality Measures During this hospital stay, did patient experience: None Coding Level of Care Code Acute Attendant Arcade for Jose Alfredog Fwd Exam Expanded Problem Focused Diagnoses Vaginal delivery O80
[2019-08-05 08:40] VITALS: BP 128/82; PULSE 105; RESP 18; TEMP 36.8
[2019-08-05 09:44] VITALS: BP 128/82; PULSE 105; RESP 18; TEMP 36.8
== END 2019-08-05 09:20 | disposition home or self-care (01) | DRG 807 ==
PROVIDERS: Obstetrics & Gynecology; Admitting Provider Obstetrics & Gynecology; Visit Provider Obstetrics & Gynecology
DX: O69.81X0 Labor and delivery complicated by cord around neck, without compression, not applicable or unspecified (principal); Z37.0 Single live birth; O70.1 Second degree perineal laceration during delivery; Z3A.39 39 weeks gestation of pregnancy
CPT/HCPCS: 12345; 36415; 59025; 59409; 84112; 85025; 85027; 96372; 96375; G0378; G0379; J2270; J2405; J2550; J2795

== ENCOUNTER → 2019-11-30 10:37 | Outpatient (BNVA) | payer OTHER, MEDICAID, SELFPAY | PROVIDERS: Visit Provider Nurse Practitioner Women's Health | DX: O26.841 Uterine size-date discrepancy, first trimester (principal); O09.891 Supervision of other high risk pregnancies, first trimester; Z3A.08 8 weeks gestation of pregnancy | CPT/HCPCS: 84315; 84702 ==

== ENCOUNTER → 2019-12-08 09:04 | Outpatient (BNVA) | payer OTHER, MEDICAID, SELFPAY | PROVIDERS: Visit Provider Obstetrics & Gynecology | DX: Z34.90 Encounter for supervision of normal pregnancy, unspecified, unspecified trimester (principal) | CPT/HCPCS: 84702; 86850; 86900 ==

== ENCOUNTER 2019-12-15 07:12 | Emergency (ER) | payer OTHER, MEDICAID, SELFPAY ==
[2019-12-15 07:12] VITALS: BP 137/76; PULSE 67; RESP 18; O2SAT 67
[2019-12-15 07:15] VITALS: BP 137/76; PULSE 76; RESP 18; TEMP 36.2; O2SAT 99; BMI 34.1
--- NOTE | 2019-12-15 07:28 | US_ITS ---
WS: [id number] EARLY OBSTETRICAL ULTRASOUND (<14 WEEKS). HISTORY: ; spotting COMPARISON: 12/08/2019 Single intrauterine gestational sac is identified. Mean sac diameter of 2.1 cm corresponds to gestati on of 7 weeks and 2 days. There is a crown-rump length of 0.4 cm corresponding to a gestation of 6 we eks and 0 days. No cardiac activity identified. No progression of the or chronic lung rump length of 12/08/2019. Yolk sac is enlarged measuring 8 mm in diameter. There is a very tiny amount of fluid adjacent to the gestational sac. No free fluid in the cul-de-sac. Ovaries are normal size. US/US OB <=14 wk fetus w transvag IMPRESSION: 1. Intrauterine gestation of 6 weeks and 0 days based upon the crown-rump jesse th and 7 weeks 2 days based upon the mean sac diameter. 2. No cardiac activity. 3. Suspect embryonic demise with incomplete spontaneous . There has be en no increase in size of the gestational sac or pole since 12/08/2019. 4. Abnormal yolk sac.
--- NOTE | 2019-12-15 07:28 | W.ED.PREGNAN ---
HPI - General: Chief complaint: Urogenital-Female Stated complaint: PREG AND BLEEDING Time Seen by Provider: 12/15/19 07:13 Source: patient Mode of arrival: ambulatory Limitations: no limitations History of Present Illness: HPI Narrative: Patient is a 19-year-old female who presents to ED today with a complaint of spotting during that began this morning. She states spotting has been extremely minimal but was told if she had any form of bleeding she needed to come to the emergency department. Patient is approximately 12 weeks from a vaginal delivery in August. She is unknown gestational age currently but thinks approximately 8 to 9 weeks. She states LMP was early September. Patient states she has seen the women[facility] health clinic and had an ultrasound performed that came back abnormal . Results of the ultrasound report are as follows: INTERPRETATION: 1) Single intrauterine measuring 6 weeks and 3 days today. This is more than a 3-week difference from LMP-consider changing due date. Viability of the has not yet been established. Recommend follow-up sonogram in 1 to 2 weeks to reassess for heartbeat. Clinical correlation recommended 2) Bilateral ovaries appear normal with the corpus luteum seen in the left ovary. 3) No free fluid in the cul-de-sac. Patient is not having any vaginal discharge or vaginal odor. She has not had any new sexual partners or concern for STDs. No fevers. She is not having any abdominal pain or cramping at this time. Complaint: vaginal bleeding Onset (ago): hour(s) Relieving factors: none Exacerbating factors: none Vaginal discharge: none Vaginal bleeding: light Date of Last Menstrual Period: 10/02/19 Patient : Yes Associated symptoms: Deny abdominal pain, dysuria, headache(s), nausea, vaginal discharge or vomiting Review of Systems Const: Denies: fever(s), chills or body aches Card: Denies: chest pain Resp: Denies: dyspnea GI: Denies: abdominal pain, nausea, vomiting or diarrhea : Reports: vaginal bleeding; Denies: flank pain, difficulty voiding, dysuria, urinary frequency, urinary urgency, urinary hesitancy, hematuria, genital lesions, genital pruritis, vaginal odor or vaginal discharge Musc: Denies: neck pain or back pain Skin/Breast: Denies: rash Neuro: Denies: headache(s) PFS ED PFSH: Medical History (Updated 12/15/19 @ 08:29 by RICKY Rolon) Patient denies medical problems Patient denies history of PE/DVT/clotting disorders, asthma, lung, liver heart, thyroid, kidney disease, hypertension or diabetes. Denies HSV for partner. PCP: Dr. 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 [employer] Female Reproductive History: Date of last menstrual period: 10/02/19 Physical Exam Const: COMMON NORMALS: no acute distress, patient oriented x3, no limitations and alert NUTRITIONAL APPEARANCE: obese HENMT: COMMON NORMALS: normocephalic and atraumatic HEAD & SCALP: normocephalic and atraumatic Resp: COMMON NORMALS: normal respiratory effort and clear to auscultation bilaterally AUSCULTATION: clear to auscultation bilaterally Cardio: COMMON NORMALS: regular rate and regular rhythm RATE: regular rate RHYTHM: regular rhythm GI: COMMON NORMALS: Normal to inspection, nondistended, normoactive bowel sounds present, Soft to palpation, non-tender, No hepatosplenomegaly present and no masses PALPATION: Yes Soft to palpation and Yes No hepatosplenomegaly present : COMMON NORMALS: Yes no CVA tenderness BLADDER/KIDNEY EXAM: Yes no CVA tenderness Back/Pelvis: COMMON NORMALS: no CVA tenderness Neuro: COMMON NORMALS: patient oriented x3 SENSORIUM/ORIENTATION: Yes alert Skin: COMMON NORMALS: no rashes or lesions noted GENERAL SKIN EXAM: no rashes or lesions noted Course Vital Signs: Vital signs: Vital Signs Temperature 97.2 F L 12/15/19 08:39 Pulse Rate 64 12/15/19 08:39 Respiratory Rate 18 12/15/19 08:39 Blood Pressure 132/70 12/15/19 08:39 Pulse Oximetry 96 12/15/19 08:39 MDM - OB/Uterine Contractions MDM Narrative: Medical decision making narrative: Patient had hCG level drawn [place] 11/29 [place] [address]. This was repeated on 12/07 [place] [address]. Today her level was 8566. Ultrasound today still with no cardiac activity. No increase in size of gestational sac or pole since last ultrasound-these findings coupled with her declining hCG levels, this ultimately will not be a viable for patient. Patient tells me she has an appointment with Dr. Abreu tomorrow for followup. Lab Data: Labs: Lab Results 12/15/19 12/15/19 12/15/19 Range/Units 07:33 07:35 07:35 WBC 7.4 (4.5-13.0) 10^3/ uL RBC 4.51 (4.1-5.3) 10^6/u L Hgb 12.7 (11.5-15.3) g/dL Hct 38.3 (37.0-47.0) % MCV 84.9 (81-99) fL MCH 28.2 (28.0-34.0) pg MCHC 33.2 (30.0-36.0) g/dL RDW 12.7 (12.1-15.1) % Plt Count 243 (130-400) 10^3/c mm MPV 11.6 H (7.4-10.4) fL Neut % (Auto) 46.0 % Lymph % (Auto) 36.8 % [place] % (Auto) 8.8 % Eos % (Auto) 7.3 % Baso % (Auto) 0.7 % Neut # (Auto) 3.39 (1.8-8.0) 10^3/u L Lymph # (Auto) 2.7 (1.5-6.5) 10^3/u L [place] # (Auto) 0.7 (0.2-0.9) 10^3/u L Eos # (Auto) 0.5 (0.0-0.8) 10^3/u L Baso # (Auto) 0.1 (0.0-0.1) 10^3/u L Nucleated RBC % (a uto) 0 % Nucleated RBCs # 0.0 /100WBC Sodium (136-145) mmol/L Potassium (3.5-5.1) mmol/L Chloride (98-107) mmol/L Carbon Dioxide (22-29) mmol/L Anion Gap (5-19) BUN (6-20) mg/dL Creatinine (0.5-0.9) mg/dL GFR Calculation (90-130) mL/min Glucose (65-115) mg/dL Calculated Osmolal ity (285-295) mOsm/k g Calcium (8.5-10.5) mg/dL Total Bilirubin (0.15-1.2) mg/dL AST (0-32) U/L ALT (0-33) U/L Alkaline Phosphata se (35-105) IU/L Total Protein (6.6-8.7) g/dL Albumin (3.5-5.2) g/dL Globulin (1.3-4.6) g/dL Ser , Mariah i-Qnt mIU/mL Urine Color Yellow (Yellow) Urine Appearance Cloudy (CLEAR) Urine pH 5 (5-7) Ur Specific Gravit y 1.025 (1.005-1.030) Urine Protein Neg (Negative) Urine Glucose (UA) Norm (Normal) Urine Ketones Negative (Negative) Urine Blood 3+ H (Negative) Urine Nitrate Negative (Negative) Urine Bilirubin Neg (Negative) Urine Urobilinogen Norm (Negative) mg/dL Ur Leukocyte Kelly ase 2+ H (Negative) Urine RBC 5-10 H (0-2) /hpf Urine WBC 15-25 H (0-5) /hpf Ur Squamous Epith Cells 25-40 H (0-5) /hpf Amorphous Sediment Not Reportable Urine Bacteria 2+ H (NONE) /hpf Blood Type O Positive Rho(D) Type Positive 12/15/19 Range/Units 07:35 WBC (4.5-13.0) 10^3/ uL RBC (4.1-5.3) 10^6/u L Hgb (11.5-15.3) g/dL Hct (37.0-47.0) % MCV (81-99) fL MCH (28.0-34.0) pg MCHC (30.0-36.0) g/dL RDW (12.1-15.1) % Plt Count (130-400) 10^3/c mm MPV (7.4-10.4) fL Neut % (Auto) % Lymph % (Auto) % [place] % (Auto) % Eos % (Auto) % Baso % (Auto) % Neut # (Auto) (1.8-8.0) 10^3/u L Lymph # (Auto) (1.5-6.5) 10^3/u L [place] # (Auto) (0.2-0.9) 10^3/u L Eos # (Auto) (0.0-0.8) 10^3/u L Baso # (Auto) (0.0-0.1) 10^3/u L Nucleated RBC % (a uto) % Nucleated RBCs # /100WBC Sodium 134 L (136-145) mmol/L Potassium 4.0 (3.5-5.1) mmol/L Chloride 102 (98-107) mmol/L Carbon Dioxide 23 (22-29) mmol/L Anion Gap 13.0 (5-19) BUN 13 (6-20) mg/dL Creatinine 0.5 (0.5-0.9) mg/dL GFR Calculation 157.3 H (90-130) mL/min Glucose 83 (65-115) mg/dL Calculated Osmolal ity 277 L (285-295) mOsm/k g Calcium 9.0 (8.5-10.5) mg/dL Total Bilirubin 0.3 (0.15-1.2) mg/dL AST 17 (0-32) U/L ALT 18 (0-33) U/L Alkaline Phosphata se 134 H (35-105) IU/L Total Protein 7.8 (6.6-8.7) g/dL Albumin 4.4 (3.5-5.2) g/dL Globulin 3.4 (1.3-4.6) g/dL Ser , Mariah i-Qnt 8566.00 mIU/mL Urine Color (Yellow) Urine Appearance (CLEAR) Urine pH (5-7) Ur Specific Gravit y (1.005-1.030) Urine Protein (Negative) Urine Glucose (UA) (Normal) Urine Ketones (Negative) Urine Blood (Negative) Urine Nitrate (Negative) Urine Bilirubin (Negative) Urine Urobilinogen (Negative) mg/dL Ur Leukocyte Kelly ase (Negative) Urine RBC (0-2) /hpf Urine WBC (0-5) /hpf Ur Squamous Epith Cells (0-5) /hpf Amorphous Sediment Urine Bacteria (NONE) /hpf Blood Type Rho(D) Type Imaging Data^: US OB: Radiologist's impression: [address] [address] Ultrasound Report Signed Patient: Nai Anthony Unit #: [id number] : 2000 Age/Sex: 19 / F ADM Date: 12/15/19 Loc: ER Room/Bed: Attending Dr: Ordering Provider/Ordering MD: Brianna Hyde Date of Service: 12/15/19 Procedure(s): US OB <=14 wk fetus w transvag Accession Number(s): [id number] Report Number: [id number] WS: [id number] EARLY OBSTETRICAL ULTRASOUND (<14 WEEKS). HISTORY: ; spotting COMPARISON: 12/08/2019 Single intrauterine gestational sac is identified. Mean sac diameter of 2.1 cm corresponds to gestation of 7 weeks and 2 days. There is a crown-rump length of 0.4 cm corresponding to a gestation of 6 weeks and 0 days. No cardiac activity identified. No progression of the or chronic lung rump length of 12/08/2019. Yolk sac is enlarged measuring 8 mm in diameter. There is a very tiny amount of fluid adjacent to the gestational sac. No free fluid in the cul-de-sac. Ovaries are normal size. US/US OB <=14 wk fetus w transvag IMPRESSION: 1. Intrauterine gestation of 6 weeks and 0 days based upon the crown-rump length and 7 weeks 2 days based upon the mean sac diameter. 2. No cardiac activity. 3. Suspect embryonic demise with incomplete spontaneous . There has been no increase in size of the gestational sac or pole since 12/08/2019. 4. Abnormal yolk sac. Dictated By: Lillie Borja DO Signed By: Lillie Borja DO Signed Date/Time: 12/15/19923 DD/ 0852 Discharge Plan Discharge Patient Disposition: Home Clinical Impression: Non-viable Condition: Stable Prescriptions: No Action prenat.vits,maxx,bmn-qutn-pizec Tablet 1 tab PO DAILY RF: 0 Discharge Orders: Discharge Order (Routine); Ordered 12/15/19 Ordered By: Brianna Hyde Referrals: [facility], [Primary Care Provider] - Activity Restrictions/Additional Instructions: Please follow up with Dr. Abreu tomorrow at your scheduled appointment. You may return to the emergency department for severe abdominal pain/cramping or severe bleeding. 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
[2019-12-15 07:40] VITALS: BP 137/76; PULSE 67; RESP 18; O2SAT 97
[2019-12-15 07:55] LABS: Basophils # 0.1 10^3/uL (0.0-0.1); Basophils % 0.7 %; Eosinophils # 0.5 10^3/uL (0.0-0.8); Eosinophils % 7.3 %; Hematocrit 38.3 % (37.0-47.0); Hemoglobin 12.7 g/dL (11.5-15.3); Lymphocytes # 2.7 10^3/uL (1.5-6.5); Lymphocytes % 36.8 %; Mean Corpuscular HGB Conc 33.2 g/dL (30.0-36.0); Mean Corpuscular Hemoglobin 28.2 pg (28.0-34.0); Mean Corpuscular Volume 84.9 fL (81-99); Mean Platelet Volume 11.6 fL (7.4-10.4); Monocytes # 0.7 10^3/uL (0.2-0.9); Monocytes % 8.8 %; Neutrophils # 3.39 10^3/uL (1.8-8.0); Nucleated Red Blood Cells % 0 %; Platelet Count 243 10^3/cmm (130-400); Red Blood Count 4.51 10^6/uL (4.1-5.3); Red Cell Distribution Width 12.7 % (12.1-15.1); White Blood Count 7.4 10^3/uL (4.5-13.0)
[2019-12-15 08:11] LABS: Add Urine Culture? No; Add Urine Microscopic? YES; Bacteria Urine 2+ /hpf; Bilirubin Urine Neg (Negative); Blood Urine 3+ (Negative); Glucose Urine UA Norm (Normal); Ketones Urine Negative (Negative); Leukocyte Esterase Urine 2+ (Negative); Nitrate Urine Negative (Negative); Protein Urine Neg (Negative); Specific Gravity, Urine 1.025 (1.005-1.030); Squamous Epithelial Cell Urine 25-40 /hpf (0-5); Urine Appearance Cloudy (CLEAR); Urine Color Yellow (Yellow); Urobilinogen Urine Norm (Negative); WBC Urine 15-25 /hpf (0-5); pH Urine 5 (5-7)
[2019-12-15 08:21] LABS: Alanine Aminotransferase 18 U/L (0-33); Albumin Level 4.4 g/dL (3.5-5.2); Alkaline Phosphatase 134 IU/L (35-105); Aspartate Amino Transferase 17 U/L (0-32); Blood Urea Nitrogen 13 mg/dL (6-20); Carbon Dioxide 23 mmol/L (22-29); Chloride 102 mmol/L (98-107); Globulin 3.4 g/dL (1.3-4.6); Glomerular Filtration Rate 157.3 mL/min (90-130); Glucose 83 mg/dL (65-115); Osmolality Calculated 277 mOsm/kg (285-295); Sodium 134 mmol/L (136-145); Total Bilirubin 0.3 mg/dL (0.15-1.2); Total Protein 7.8 g/dL (6.6-8.7)
[2019-12-15 08:39] VITALS: BP 132/70; PULSE 64; RESP 18; TEMP 36.2; O2SAT 96
== END 2019-12-15 08:46 | disposition home or self-care (01) ==
PROVIDERS: Emergency Provider Physician Assistant
DX: O02.1 Missed abortion (principal)
CPT/HCPCS: 12345; 76801; 76817; 80053; 81001; 84702; 85025; 86900; 99281; 99282; 99283

== ENCOUNTER → 2019-12-22 13:50 | Outpatient (BNVA) | payer OTHER, MEDICAID, SELFPAY | PROVIDERS: Visit Provider Obstetrics & Gynecology | DX: O02.1 Missed abortion (principal) | CPT/HCPCS: 84702 ==

== ENCOUNTER → 2020-02-01 00:01 | Outpatient (BNVA) | payer OTHER, MEDICAID, SELFPAY | PROVIDERS: Visit Provider Obstetrics & Gynecology | DX: Z12.4 Encounter for screening for malignant neoplasm of cervix (principal) | CPT/HCPCS: 88175 ==

== ENCOUNTER → 2020-04-25 09:45 | Outpatient (BNVA) | payer OTHER, BC, MEDICAID, SELFPAY | PROVIDERS: PCP Family Medicine; Visit Provider Obstetrics & Gynecology | DX: Z34.81 Encounter for supervision of other normal pregnancy, first trimester (principal) | CPT/HCPCS: 85027; 86592; 86762; 86803; 86850; 86900; 87340; 87806 ==

== ENCOUNTER → 2020-05-07 14:37 | Outpatient (BNVA) | payer OTHER, BC, MEDICAID, SELFPAY | PROVIDERS: PCP Family Medicine; Visit Provider Obstetrics & Gynecology | DX: Z34.81 Encounter for supervision of other normal pregnancy, first trimester (principal) | CPT/HCPCS: 80307; 84315; 87086; 87491; 87591 ==

== ENCOUNTER → 2020-08-01 15:36 | Outpatient (BNVA) | payer OTHER, BC, MEDICAID, SELFPAY | PROVIDERS: PCP Family Medicine; Visit Provider Nurse Practitioner Women's Health | DX: Z34.90 Encounter for supervision of normal pregnancy, unspecified, unspecified trimester (principal); R31.9 Hematuria, unspecified; Z34.82 Encounter for supervision of other normal pregnancy, second trimester | CPT/HCPCS: 84315; 87086 ==

== ENCOUNTER → 2020-08-29 10:10 | Outpatient (BNVA) | payer OTHER, BC, MEDICAID, SELFPAY | PROVIDERS: PCP Family Medicine; Visit Provider Obstetrics & Gynecology | DX: Z34.82 Encounter for supervision of other normal pregnancy, second trimester (principal) | CPT/HCPCS: 82950; 84315; 85027 ==

== ENCOUNTER → 2020-10-23 10:47 | Outpatient (BNVA) | payer OTHER, BC, MEDICAID, SELFPAY | PROVIDERS: PCP Family Medicine; Visit Provider Obstetrics & Gynecology | DX: Z34.90 Encounter for supervision of normal pregnancy, unspecified, unspecified trimester (principal); Z34.82 Encounter for supervision of other normal pregnancy, second trimester | CPT/HCPCS: 84315; 87081 ==

== ENCOUNTER → 2020-11-01 11:27 | Outpatient (BNVA) | payer OTHER, BC, MEDICAID, SELFPAY | PROVIDERS: PCP Family Medicine; Visit Provider Registered Nurse Neonatal Intensive Care | DX: R10.9 Unspecified abdominal pain (principal); N39.0 Urinary tract infection, site not specified | CPT/HCPCS: 81000 ==

== ENCOUNTER → 2020-11-06 08:45 | Outpatient (BNVA) | payer OTHER, BC, MEDICAID, SELFPAY | PROVIDERS: PCP Family Medicine; Visit Provider Obstetrics & Gynecology | DX: Z34.90 Encounter for supervision of normal pregnancy, unspecified, unspecified trimester (principal) | CPT/HCPCS: 84315; 87635 ==

== ENCOUNTER 2020-11-12 21:16 | Inpatient (IN) | payer BC, MEDICAID, SELFPAY ==
[2020-11-12] VITALS (7 sets, daily range): BP systolic 101–144; BP diastolic 54–72; PULSE 80–99; RESP 18; TEMP 36.1
[2020-11-12] MEDS: lactated ringers 1,000 ML 999 ML IV (21:45)
--- NOTE | 2020-11-12 21:57 | PM.OPHPUD ---
Labor & Delivery H&P Update Date of Procedure: November 12, 2020 Date H&P Performed: 11/06/20 H&P update information: I have reviewed H&P completed within last 30 days, I have examined patient prior to procedure, No changes to prior documentation and H&P is in [facility] EMR on date indicated Admission Diagnosis: Preop diagnosis: Intrauterine
[2020-11-12 21:58] LABS: Basophils % 0.3 %; Eosinophils # 0.1 10^3/uL (0.0-0.8); Eosinophils % 1.5 %; Hematocrit 31.9 % (37.0-47.0); Hemoglobin 10.5 g/dL (11.5-15.3); Lymphocytes # 2.2 10^3/uL (0.8-4.8); Lymphocytes % 29.2 %; Mean Corpuscular HGB Conc 32.9 g/dL (30.0-36.0); Mean Corpuscular Hemoglobin 25.5 pg (28.0-34.0); Mean Corpuscular Volume 77.6 fl (81-99); Mean Platelet Volume 11.8 fL (7.4-10.4); Monocytes # 0.6 10^3/uL (0.2-0.9); Monocytes % 7.7 %; Neutrophils # 4.57 10^3/uL (1.8-7.7); Neutrophils % 60.6 %; Nucleated Red Blood Cells % 0 %; Platelet Count 246 10^3/cmm (130-400); Red Blood Count 4.11 10^6/uL (4.1-5.3); Red Cell Distribution Width 14.2 % (12.1-15.1); White Blood Count 7.5 10^3/uL (4.0-10.0)
[2020-11-13] VITALS (60 sets, daily range): BP systolic 83–131; BP diastolic 49–80; PULSE 60–110; RESP 17–20; TEMP 35.7–36.9; O2SAT 99–100
[2020-11-13] MEDS: miSOPROStol 100 mcg tablet 25 MCG VAGINAL ×2 (00:02→04:39)
[2020-11-13] MEDS: dextrose 5%-lactated ringers 1,000 ML 125 ML IV ×2 (04:36→07:24)
[2020-11-13] MEDS: lactated ringers 1,000 ML 999 ML IV (06:39)
--- NOTE | 2020-11-13 07:55 | ANES.PREANE2 ---
Pre-Anesthetic Assessment Pre-Anesthetic Assessment: Height/Weight: Height 1.7 m Weight 102.965 kg Temp Pulse Resp BP Pulse Ox 97.2 F L 95 17 100/59 99 11/13/20 07:23 11/13/20 07:45 11/13/20 04:44 11/13/20 07:45 11/13/20 07:31 Preop Diagnosis: Intrauterine Familial anesthetic complications: None Was Beta Arron taken within 24 hours: N/A Was Clonidine taken within 24 hours: N/A Last intake: > 8 hrs Social: Social History: No alcohol and No tobacco Exam: Pre-Anes Outpt Exam: alert, oriented x 3, clear to auscultation bilaterally and regular rate & rhythm Airway: Cervical ROM: WNL MP: 2 Dentition: Full Anesthetic Plan: ASA status: 2 Anesthesia: Regional (specify below) Risk of > 500 ml blood loss (7ml/kg in children): Yes, adequate IV access and fluids planned Meds/Allergies Current Medications: Current Medications Generic Name Dose Route Start Last Admin Trade Name Joelq PRN Reason Stop Dose Admin Dextrose/Lactated Ringer's 1,000 mls @ 125 m ls/hr 11/12/20 21:15 11/13/20 07:24 Dextrose 5%-Lact ated Ringers IV 125 mls/hr .Q8H JUAN MANUEL Administration Ropivacaine 200 mg in 100 mls @ 13 mls/hr 11/13/20 05:30 11/13/20 07:19 Naropin Premix EPIDURAL 13 mls/hr .Q7H42M JUAN MANUEL Administration Lactated Ringer's 1,000 mls @ 999 m ls/hr 11/13/20 05:26 11/13/20 06:39 Lactated Ringers IV 999 mls/hr .Q1H1M PRN Administration See label comment s Misoprostol 25 mcg 11/13/20 00:00 11/13/20 04:39 Misoprostol 100 Mcg Tablet VAGINAL 11/13/20 08:01 25 mcg Q4H JUAN MANUEL Administration PFSH Anesthesia PFSH: Medical History Patient denies medical problems Denies diabetes, asthma, hypertension, seizures, DVT/PE PCP: Dr. Castro Surgical History No history of previous surgery Family History Grandmother Ovarian cancer maternal, diagnosed at age 40 Family/Other Breast cancer Maternal aunt, diagnosed in her 50s Patient denies medical problems Denies family history of: Hypertension, Diabetes, Heart Disease, Stroke, Hypercholesterolemia, Thyroid Problems, Uterine Cancer, Colon Cancer Female Reproductive History: Date of last menstrual period: 10/02/19 : 3 Data Anesthesia CBC & Chem 7: 11/12/20 21:42 Other Labs: Laboratory Results - last 48 hr 11/12/20 21:42 WBC 7.5 RBC 4.11 Hgb 10.5 L Hct 31.9 L MCV 77.6 L MCH 25.5 L MCHC 32.9 RDW 14.2 Plt Count 246 MPV 11.8 H Neut % (Auto) 60.6 Lymph % (Auto) 29.2 [place] % (Auto) 7.7 Eos % (Auto) 1.5 Baso % (Auto) 0.3 Neut # (Auto) 4.57 Lymph # (Auto) 2.2 [place] # (Auto) 0.6 Eos # (Auto) 0.1 Baso # (Auto) 0.0 Nucleated RBC % (auto) 0 Nucleated RBCs # 0.0 Cardiac Studies: No Data to Display
--- NOTE | 2020-11-13 07:56 | ANES.PROC ---
Anesthesia Procedures Procedure/Date: 11/13/20 Epidural: Time Out Performed: Yes Consents Signed: Procedure Consent, NPO Consent and No Consent Needed Consent: requested by attending/covering physician, from patient, risks and benefits reviewed and patient agrees to proceed Lumbar Level: L3-L4 Epidural position: sitting Epidural procedure: sterile prep of area, 1% lidocaine to numb the area, 18 g needle, negative for paresthesia passed, neg for paresthesia, test dose given, 1.5% xylocaine 1:200k epi (5 cc), 0.2% Ropivacaine bolus ml (5), placed PCEA, no systemic response, sterile dressing applied, L.U.D. no apparent complications and 0.2% Ropiavacaine @ mls/hr (13) Additional Comments: ROBBY at 7 cm, threaded to 13 cm
[2020-11-13] MEDS: oxytocin 30 UNIT/500 ML BAG IV (09:00)
--- NOTE | 2020-11-13 10:21 | P.PCNOB_ITS ---
Delivery Note: Date of delivery: November 13, 2020 - PRE-DELIVERY DIAGNOSIS: 20-year-old at 39 weeks and 0 days For elective induction of labor Macrosomia with an estimated weight greater than 97 percentile and abnormality Obesity with a BMI of 34 POST-DELIVERY DIAGNOSIS: Vaginal delivery on 11/13/2020 hand abnormality PROCEDURE: Vaginal delivery on 11/13/2020 ANESTHESIA: Epidural anesthesia DELIVERING PHYSICIAN: Shy Abreu FACOG PRE-DELIVERY COURSE: Ms. Anthony is a 20-year-old 3 para 1-0-1-1 at 39 weeks who presented late in the evening 11/12/2020 for scheduled induction of labor to start at 11/13/2020. It was an elective induction of labor. problems include known hand abnormality and possible macrosomia with estimated growth weight to be greater than 97 percentile. She had no other problems during the and was compliant care. Covid and GBS were both negative. ----> When she presented to labor and delivery cervix was 2 cm 50% and -3 station and cephalic and tracing was category 1. Induction was Cytotec placed at midnight. At 4 AM cervix was minimally changed to 2 cm 50 to 60% and -3 station and tracing was category 1 and she had a regular contractions. A second Cytotec was placed at 4:40 AM. Shortly after at 4:48 AM she had spontaneous rupture of membranes with clear fluid. She had contractions every 4 to 5 minutes and grew uncomfortable after this and an epidural was placed. After the epidural at about 7:30 AM on 11/13/2020 she was noted to be 4 cm 70% and -3 station. She had not made any change in an hour and at about 9:00 Pitocin was started titrated to a maximum of 3 mIU. With this she had regular contractions every 2 to 3 minutes. tracing was category 1 thus far. She made rapid cervical change and was 9 cm at 9:30 AM and fully dilated at 9:36 AM and set up in lithotomy position ready to push. Plastics Nurse Dr. Reece had been notified and was prepared to be present at delivery. DELIVERY NOTE: She was set up in lithotomy position and was pushing effectively. She was noted to be +3 station and continued pushing well. The head delivered in WONG position, nuchal cord x1 was present. It was tight and could not be reduced. The nuchal cord was also very thick with a lot of Skylar's jelly. The shoulders and rest of the body followed with her next push. The baby's mouth and nose were suctioned and the baby was placed on the mother's belly. Once cord pulsations stopped the cord was clamped and cut. The placenta delivered spontaneously intact with membranes and was sent to pathology. The fundus was noted to be firm and well contracted. The vagina and cervix were inspected and no cervical or sulcal lacerations were noted. The perineum was also noted to be intact. Baby boy, Dontae Almaguer born at 9:59 AM on 11/13/2020 with 8/9, weighing 8 pounds 6 ounces, 3800 g, 21 3/4 inches long. Placenta was delivered spontaneously intact with membranes at 10:04 AM. Cotyledons were intact , centrally inserted umbilical cord with 3 vessels noted. Placenta was sent to pathology Estimated blood loss 200 mL. Complications-none, both baby and mother were left recover in a stable condition. Examination of the baby after delivery by power generation plant operator Dr. Hickman showed that the left hand abnormality was noted with missing ring and little fingers and fused's gain of the index and pointer finger. Plan is for outpatient follow-up with a hand surgeon in [place]. Baby was otherwise doing well This documentation was created by [employer] agronomy professor software (known for inherent agronomy professor error). Every effort was made to assure accuracy of agronomy professor. Any obvious errors or omissions should be clarified with the author of the document. Coding Level of Care Code Acute Disk Operator for g Fwd History History History 3 Term 2 Miscarriages/Ectopic 1 0 Living Children 2 Other History: X 2 SAB X 1 1---> 08/03/2019----> full-term vaginal delivery at 39 weeks and 6 days after elective induction by Dr. Brennan at [facility]. Intact perineum. Male (Christoph), weighing 7 pounds 5 ounces, 3320 g. No complications. 2--->11/2019-----> missed at 6 weeks--patient given Cytotec on 12/16/2019 and had a spontaneous miscarriage. No problems afterwards. 3--> 11/13/2020, full-term vaginal delivery at 39 weeks and 0 days after elective induction by Dr. Abreu at [facility]. Baby boyHector) weighing 8 pounds 6 ounces. No complications, intact perineum. hand abnormality that was identified in confirmed after delivery-missing ring and little fingers on left hand and fused middle and pointer fingers.
--- NOTE | 2020-11-13 12:51 | PC.NURSE ---
Pt up to bathroom with assistance. Void well. Diya care by pt. Gown/pad changed. Complete linen change. Pt back to bed without difficulty.
[2020-11-13] MEDS: ibuprofen 800 mg tablet PO ×2 (15:18→20:19)
--- NOTE | 2020-11-13 18:12 | PC.NURSE ---
OUTPUT 600MLS FROM [facility]UNG PRIOR TO DELIVERY AND THEN PATIENT HAS VOIDED 3 TIMES SINCE DELIVERY.
--- NOTE | 2020-11-13 18:14 | PC.NURSE ---
EPIDURAL REMOVED AROUND 1115, CATH INTACT. THERE WAS QUITE A BIT OF BRUISING AROUND SITE AT TIME OF REMOVAL. SITE HAS NOT CHANGED AT 1800 WHEN I LOOKED AT IT.
[2020-11-13] MEDS: benzocaine-menthol 78 gm Canister 1 SPRAY TOPICAL (20:19)
[2020-11-13] MEDS: docusate sodium 100 mg Capsule PO (20:19)
[2020-11-13 22:30] LABS: Hematocrit 31.9 % (37.0-47.0); Hemoglobin 10.2 g/dL (11.5-15.3); Mean Corpuscular Hemoglobin 25.1 pg (28.0-34.0); Mean Corpuscular Volume 78.4 fl (81-99); Mean Platelet Volume 12.2 fL (7.4-10.4); Platelet Count 224 10^3/cmm (130-400); Red Blood Count 4.07 10^6/uL (4.1-5.3); Red Cell Distribution Width 14.2 % (12.1-15.1); White Blood Count 9.6 10^3/uL (4.0-10.0)
[2020-11-14 00:21] VITALS: BP 99/52; PULSE 58; TEMP 36.3
[2020-11-14 04:01] VITALS: TEMP 36
[2020-11-14 04:02] VITALS: BP 109/58; PULSE 66
--- NOTE | 2020-11-14 06:21 | PM.OBGYDC ---
Discharge Providers PIPE CAULKER Date of Admission: 11/12/20 21:16 Date of Discharge: 11/14/20 Attending Provider at Admission: Shy Mcgraw MD Attending Provider at Discharge: Shy Mcgraw MD Primary Care Provider: PRE-DELIVERY DIAGNOSIS: 20-year-old at 39 weeks and 0 days For elective induction of labor Macrosomia with an estimated weight greater than 97 percentile and abnormality Obesity with a BMI of 34 POST-DELIVERY DIAGNOSIS: Vaginal delivery on 11/13/2020 hand abnormality PROCEDURE: Vaginal delivery on 11/13/2020 ANESTHESIA: Epidural anesthesia DELIVERING PHYSICIAN: Shy Abreu FACOG PRE-DELIVERY COURSE: Ms. Anthony is a 20-year-old 3 para 1-0-1-1 at 39 weeks who presented late in the evening 11/12/2020 for scheduled induction of labor to start at 11/13/2020. It was an elective induction of labor. problems include known hand abnormality and possible macrosomia with estimated growth weight to be greater than 97 percentile. She had no other problems during the and was compliant care. Covid and GBS were both negative. ----> When she presented to labor and delivery cervix was 2 cm 50% and -3 station and cephalic and tracing was category 1. Induction was Cytotec placed at midnight. At 4 AM cervix was minimally changed to 2 cm 50 to 60% and -3 station and tracing was category 1 and she had a regular contractions. A second Cytotec was placed at 4:40 AM. Shortly after at 4:48 AM she had spontaneous rupture of membranes with clear fluid. She had contractions every 4 to 5 minutes and grew uncomfortable after this and an epidural was placed. After the epidural at about 7:30 AM on 11/13/2020 she was noted to be 4 cm 70% and -3 station. She had not made any change in an hour and at about 9:00 Pitocin was started titrated to a maximum of 3 mIU. With this she had regular contractions every 2 to 3 minutes. tracing was category 1 thus far. She made rapid cervical change and was 9 cm at 9:30 AM and fully dilated at 9:36 AM and set up in lithotomy position ready to push. Jive Developer Dr. Reece had been notified and was prepared to be present at delivery. DELIVERY NOTE: She was set up in lithotomy position and was pushing effectively. She was noted to be +3 station and continued pushing well. The head delivered in WONG position, nuchal cord x1 was present. It was tight and could not be reduced. The nuchal cord was also very thick with a lot of Skylar's jelly. The shoulders and rest of the body followed with her next push. The baby's mouth and nose were suctioned and the baby was placed on the mother's belly. Once cord pulsations stopped the cord was clamped and cut. The placenta delivered spontaneously intact with membranes and was sent to pathology. The fundus was noted to be firm and well contracted. The vagina and cervix were inspected and no cervical or sulcal lacerations were noted. The perineum was also noted to be intact. Baby boy, Dontae Almaguer born at 9:59 AM on 11/13/2020 with 8/9, weighing 8 pounds 6 ounces, 3800 g, 21 3/4 inches long. Placenta was delivered spontaneously intact with membranes at 10:04 AM. Cotyledons were intact , centrally inserted umbilical cord with 3 vessels noted. Placenta was sent to pathology Estimated blood loss 200 mL. Complications-none, both baby and mother were left recover in a stable condition. Examination of the baby after delivery by mint machine operator Dr. Hickman showed that the left hand abnormality was noted with missing ring and little fingers and fused's gain of the index and pointer finger. Plan is for outpatient follow-up with a hand surgeon in [place]. Baby was otherwise doing well HOSPITAL COURSE: She underwent an uncomplicated vaginal delivery on 11/13/2020. She did well on day 0 and was ambulating well, tolerating regular diet, voiding freely, passing flatus. She was bottlefeeding without difficulty and bonding well with her son. She desired her son to have a circumcision after informed consent circumcision was performed on him on day of life 1 without any difficulty after clearance by mint machine operator. Pain was well-controlled with by mouth pain medication. She denied nausea, vomiting, fever, chills, shortness of breath, leg pain. She had moderate vaginal bleeding. On day # 1 she continued to do well with stable vital signs and stable hemoglobin at 10.2. She was discharged home on day 1 in a stable condition, as she desired early discharge. Warning signs for endometritis, mastitis, DVT/PE were reviewed with her. Post delivery activity restrictions were also reviewed with her at all her questions were answered to her satisfaction. She plans on using control pills for contraception which will start at her 6-week visit. EXAM AT DISCHARGE: Gen.: No acute distress Heart: S1-S2 heard, regular rate and rhythm Lungs: Clear to auscultation bilaterally Abdomen: Soft, fundus firm below umbilicus, Legs: No calf tenderness, trace bilateral pitting pedal edema. CONDITION AT DISCHARGE: Stable This documentation was created by [email or web address] checkering machine adjuster software (known for inherent checkering machine adjuster error). Every effort was made to assure accuracy of checkering machine adjuster. Any obvious errors or omissions should be clarified with the author of the document. Reason for Visit Reason for Visit: induction Information Peripartum Data: Infant Delivery Method: Vaginal Physical Exam Urinary Catheter Management^: Jones: Cath Placed During This Visit: yes, but has since been removed by the nurse Reason for Continuing Indwelling Catheter: Other Urinary Catheter Date of Insertion: 11/13/20 Urinary Catheter Time of Insertion: 07:35 Date Urinary Catheter Removed: 11/13/20 Time Urinary Catheter Discontinued: 09:40 Discharge Data Data Completed and Pending: Labs from last 24 hours 11/13/20 22:20 WBC 9.6 RBC 4.07 L Hgb 10.2 L Hct 31.9 L MCV 78.4 L MCH 25.1 L MCHC 32.0 RDW 14.2 Plt Count 224 MPV 12.2 H Vitals: Last Vital Signs Temp 96.8 F L 11/14/20 04:01 Pulse 66 11/14/20 04:02 Resp 20 H 11/13/20 18:00 BP 109/58 11/14/20 04:02 Pulse Ox 99 11/13/20 07:31 Discharge Plan Discharge Patient Disposition: Home Condition: Stable Prescriptions: New docusate sodium 100 mg Capsule 100 mg PO BID PRN (Reason: constipation) Qty: 30 RF: 0 ibuprofen 800 mg tablet 800 mg PO Q8H Qty: 30 RF: 0 Continued prenat.vits,maxx,awv-bjle-ovuys Tablet 1 tab PO DAILY RF: 0 Discontinued neomycin-polymyxin B-dexameth [Maxitrol] 3.5mg/mL-10,000 unit/mL-0.1 % drops,suspension 2 drp ophthalmic (eye) QID 7 Days Qty: 5 RF: 0 cephalexin 500 mg capsule 500 mg PO QID 7 Days Qty: 28 RF: 0 Discharge Orders: Discharge Order (Routine); Ordered 11/14/20 Ordered By: Shy Mcgraw Referrals: Shy Mcgraw MD [Physician] - Discharge Diet: Usual diet Discharge Activity: Limit activity as instructed Patient Instructions: Opioid Safety Activity Restrictions/Additional Instructions: Pelvic rest for 6 weeks, no heavy lifting for 6 weeks, 6-week visit with Dr. Abreu Discharge Attestations PIPE CAULKER Time Spent in Discharge Care*: greater than 30 min Coding Level of Care Code Acute Safety Grooving Machine Operator for Liberty Pierce
--- NOTE | 2020-11-14 08:45 | ANE.PACU2 ---
Inpatient post-anesthesia follow up: Airway intact: Yes Vital signs: Temperature 96.8 F Pulse Rate 66 Respiratory Rate 20 Blood Pressure 109/58 Pulse Oximetry 99 Oxygen Delivery Me thod Room Air Oxygen Flow Rate Fraction of Inspir ed Oxygen Hydration adequate: Yes Nausea and vomiting: No Pain level: 2 Mental status: Baseline
[2020-11-14] MEDS: docusate sodium 100 mg Capsule PO (09:53)
[2020-11-14] MEDS: prenatal vitamin Capsule 1 CAP PO (09:53)
[2020-11-14] MEDS: ibuprofen 800 mg tablet PO (09:53)
[2020-11-14 09:54] VITALS: BP 114/68; PULSE 65; TEMP 35.9
[2020-11-14 11:20] VITALS: BP 114/68; PULSE 65; RESP 16; TEMP 36.8
--- NOTE | 2020-11-14 11:30 | ANE.PACU2 ---
Inpatient post-anesthesia follow up: Airway intact: Yes Vital signs: Temperature 98.2 F Pulse Rate 65 Respiratory Rate 16 Blood Pressure 114/68 Pulse Oximetry 99 Oxygen Delivery Me thod Room Air Oxygen Flow Rate Fraction of Inspir ed Oxygen Hydration adequate: Yes Nausea and vomiting: No Pain level: 1 Mental status: Baseline
== END 2020-11-14 11:30 | disposition home or self-care (01) | DRG 807 ==
LOC: OPOB 11-13 06:53 → OBGYN 11-13 06:53
PROVIDERS: Admitting Provider Obstetrics & Gynecology; PCP Family Medicine; Visit Provider Obstetrics & Gynecology
DX: O36.63X0 Maternal care for excessive fetal growth, third trimester, not applicable or unspecified (principal); Z37.0 Single live birth; O99.213 Obesity complicating pregnancy, third trimester; O69.1XX0 Labor and delivery complicated by cord around neck, with compression, not applicable or unspecified; Z3A.39 39 weeks gestation of pregnancy; Z20.822 Contact with and (suspected) exposure to COVID-19; Z80.3 Family history of malignant neoplasm of breast; Z80.41 Family history of malignant neoplasm of ovary
CPT/HCPCS: 36415; 51702; 59025; 59409; 85025; 85027; 88307; J2795

== ENCOUNTER 2021-07-20 18:01 | Emergency (ER) | payer BC, MEDICAID, SELFPAY ==
[2021-07-20 18:32] VITALS: BP 138/85; PULSE 87; RESP 16; TEMP 36.6; O2SAT 100; BMI 34.9
--- NOTE | 2021-07-20 18:39 | W.ED.ABDPA2 ---
Documented by User: GRISELDA Davenport 07/20/21 22:10 HPI - Abdominal Pain General: Chief Complaint: Abdominal Pain Stated Complaint: abd pains Time Seen by Provider: 07/20/21 18:36 History of Present Illness: Patient states she has had a lower abdominal discomfort since Thursday. Any vomiting fever chills or problems urinating. Patient said she has been little nauseous. Patient denies any vaginal discharge. Patient says it is possible she could be . Associated Symptoms: Denies chills, fever(s), nausea and vomiting Related Data: Date of Last Menstrual Period: 06/29/21 Review of Systems Const: Denies: fever(s), chills or body aches Eyes: Denies: eye discomfort ENMT: Denies: throat pain Card: Denies: chest pain Resp: Denies: dyspnea GI: Reports: abdominal pain (Pressure lower abdomen); Denies: nausea or vomiting : Denies: difficulty voiding, vaginal odor, vaginal bleeding or vaginal discharge Skin/Breast: Denies: rash Neuro: Denies: headache(s) Psych: Denies: depression or suicidal ideation PFSH ED PFSH: Medical History Patient denies medical problems Denies diabetes, asthma, hypertension, seizures, DVT/PE PCP: Dr. Castro Surgical History No history of previous surgery Family History Grandmother Ovarian cancer maternal, diagnosed at age 40 Family/Other Breast cancer Maternal aunt, diagnosed in her 50s Patient denies medical problems Denies family history of: Hypertension, Diabetes, Heart Disease, Stroke, Hypercholesterolemia, Thyroid Problems, Uterine Cancer, Colon Cancer Social History Smoking and tobacco status: never smoked Female Reproductive History: Date of last menstrual period: 06/29/21 Physical Exam Const: COMMON NORMALS: no acute distress, patient oriented x3 and alert HENMT: COMMON NORMALS: normocephalic and external ears normal HEAD & SCALP: normocephalic EXTERNAL EAR: Yes external ears normal Eye: COMMON NORMALS: EOMs intact bilaterally Neck/C-Spine: COMMON NORMALS: no JVD Resp: COMMON NORMALS: normal respiratory effort and No use of accessory muscles Cardio: COMMON NORMALS: no JVD GI: INSPECTION: Yes normal to inspection Extremity: COMMON NORMALS: normal to inspection and full ROM Neuro: COMMON NORMALS: patient oriented x3 SENSORIUM/ORIENTATION: Yes alert Psych: COMMON NORMALS: mental status grossly normal Skin: COMMON NORMALS: no rashes or lesions noted GENERAL SKIN EXAM: no rashes or lesions noted Course Vital Signs: Vital signs: Vital Signs Temperature 97.8 F 07/20/21 18:32 Pulse Rate 87 07/20/21 18:32 Respiratory Rate 16 07/20/21 18:32 Blood Pressure 127/88 07/20/21 20:00 Pulse Oximetry 92 07/20/21 20:36 MDM - Abdominal Pain Medical Decision Making Presents with lower abdominal discomfort since Thursday. Laboratory studies were negative him and blood work and UA was noncontributory. Pelvic exam performed and she had mild to moderate amount of mucoid discharge from the cervix and mild cervical motion tenderness. Wet prep showed clue cells. Discussed treatment plan with Dr. Tuttle. Patient follow back up with any worsening symptoms take medication as directed and call the hospital forward results or other test here in 24-48 hrs. Diagnosed PID most likely STD as source Lab Data : 07/20/21 19:08 07/20/21 19:08 Labs/Radiology: Laboratory Results WBC 9.5 10^3/uL (4.0-10.0) 07/20/21 19:08 RBC 5.02 10^6/uL (4.1-5.3) 07/20/21 19:08 Hgb 14.3 g/dL (11.5-15.3) 07/20/21 19:08 Hct 41.1 % (37.0-47.0) 07/20/21 19:08 MCV 81.9 fl (81-99) 07/20/21 19:08 MCH 28.5 pg (28.0-34.0) 07/20/21 19:08 MCHC 34.8 g/dL (30.0-36.0) 07/20/21 19:08 RDW 13.3 % (12.1-15.1) 07/20/21 19:08 Plt Count 265 10^3/cmm (130-400) 07/20/21 19:08 MPV 11.3 fL (7.4-10.4) H 07/20/21 19:08 Neut % (Auto) 55.6 % 07/20/21 19:08 Lymph % (Auto) 31.3 % 07/20/21 19:08 [place] % (Auto) 9.4 % 07/20/21 19:08 Eos % (Auto) 2.9 % 07/20/21 19:08 Baso % (Auto) 0.4 % 07/20/21 19:08 Neut # (Auto) 5.28 10^3/uL (1.8-7.7) 07/20/21 19:08 Lymph # (Auto) 3.0 10^3/uL (0.8-4.8) 07/20/21 19:08 [place] # (Auto) 0.9 10^3/uL (0.2-0.9) 07/20/21 19:08 Eos # (Auto) 0.3 10^3/uL (0.0-0.8) 07/20/21 19:08 Baso # (Auto) 0.0 10^3/uL (0.0-0.1) 07/20/21 19:08 Nucleated RBC % (auto) 0 % 07/20/21 19:08 Nucleated RBCs # 0.0 /100WBC 07/20/21 19:08 Sodium 131 mmol/L (136-145) L 07/20/21 19:08 Potassium 4.4 mmol/L (3.5-5.1) 07/20/21 19:08 Chloride 98 mmol/L (98-107) 07/20/21 19:08 Carbon Dioxide 22 mmol/L (22-29) 07/20/21 19:08 Anion Gap 15.4 (5-19) 07/20/21 19:08 BUN 15 mg/dL (6-20) 07/20/21 19:08 Creatinine 0.6 mg/dL (0.5-0.9) 07/20/21 19:08 GFR Calculation 125.0 mL/min (90-130) 07/20/21 19:08 Glucose 87 mg/dL (65-115) 07/20/21 19:08 Calculated Osmolality 272 mOsm/kg (285-295) L 07/20/21 19:08 Calcium 9.1 mg/dL (8.5-10.5) 07/20/21 19:08 Total Bilirubin 0.2 mg/dL (0.15-1.2) 07/20/21 19:08 AST 21 U/L (0-32) 07/20/21 19:08 ALT 17 U/L (0-33) 07/20/21 19:08 Alkaline Phosphatase 173 IU/L (35-105) H 07/20/21 19:08 Total Protein 8.3 g/dL (6.6-8.7) 07/20/21 19:08 Albumin 4.5 g/dL (3.5-5.2) 07/20/21 19:08 Globulin 3.8 g/dL (1.3-4.6) 07/20/21 19:08 Lipase 25 U/L (13-60) 07/20/21 19:08 HCG, Qual Negative (Negative) 07/20/21 19:08 Urine Color Yellow (Yellow) 07/20/21 19:08 Urine Appearance Clear (CLEAR) 07/20/21 19:08 Urine pH 5 (5-7) 07/20/21 19:08 Ur Specific [place] 1.025 (1.005-1.030) 07/20/21 19:08 Urine Protein Neg (Negative) 07/20/21 19:08 Urine Glucose (UA) Norm (Normal) 07/20/21 19:08 Urine Ketones Negative (Negative) 07/20/21 19:08 Urine Blood Neg (Negative) 07/20/21 19:08 Urine Nitrate Negative (Negative) 07/20/21 19:08 Urine Bilirubin Neg (Negative) 07/20/21 19:08 Urine Urobilinogen Norm mg/dL (Negative) 07/20/21 19:08 Ur Leukocyte Esterase Negative (Negative) 07/20/21 19:08 Discharge Plan Discharge Patient Disposition: Home Clinical Impression: Acute pelvic inflammatory disease (PID) Condition: Stable Prescriptions: New doxycycline hyclate 100 mg capsule 100 mg PO BID 7 Days Qty: 14 0RF No Action prenat.vits,maxx,kxx-obyv-mosrw Tablet 1 tab PO DAILY 0RF ciprofloxacin-dexamethasone [Ciprodex] 0.3-0.1 % drops,suspension 4 drp otic (ear) Q12H 7 Days Qty: 7.5 0RF Discharge Orders: Discharge ED (Routine); Ordered 07/20/21 Ordered By: Elijah Teague Referrals: Jazmine Castro DO [Primary Care Provider] - Discharge Diet: Usual diet Discharge Activity: Increase activity as tolerated Patient Instructions: Pelvic Inflammatory Disease (ED) Activity Restrictions/Additional Instructions: Follow-up with medical provider as directed. Take medications as prescribed. Return to the ER or your medical provider if condition worsens. Please read and understand discharge instructions. If any questions ask please. If symptoms worsen please return the ER or follow-up your primary care provider. Call the hospital in 24 to 48 hoursfor results of other tests that were completed tonight. Coding Level of Care Code ED Powder Compounder for Chg Fwd Exam Comprehensive Documented by User: Jac Tuttle DO 07/20/21 22:32 HPI - Abdominal Pain General: Chief Complaint: Abdominal Pain Stated Complaint: abd pains Time Seen by Provider: 07/20/21 18:36 [facility] ED PFSH: Medical History Patient denies medical problems Denies diabetes, asthma, hypertension, seizures, DVT/PE PCP: Dr. Castro Surgical History No history of previous surgery Family History Grandmother Ovarian cancer maternal, diagnosed at age 40 Family/Other Breast cancer Maternal aunt, diagnosed in her 50s Patient denies medical problems Denies family history of: Hypertension, Diabetes, Heart Disease, Stroke, Hypercholesterolemia, Thyroid Problems, Uterine Cancer, Colon Cancer Social History Smoking and tobacco status: never smoked Course Vital Signs: Vital signs: Vital Signs Temperature 97.8 F 07/20/21 18:32 Pulse Rate 87 07/20/21 18:32 Respiratory Rate 16 07/20/21 18:32 Blood Pressure 127/88 07/20/21 20:00 Pulse Oximetry 92 07/20/21 20:36 MDM - Abdominal Pain Medical Decision Making Presents with lower abdominal discomfort since Thursday. Laboratory studies were negative him and blood work and UA was noncontributory. Pelvic exam performed and she had mild to moderate amount of mucoid discharge from the cervix and mild cervical motion tenderness. Wet prep showed clue cells. Discussed treatment plan with Dr. Tuttle. Patient follow back up with any worsening symptoms take medication as directed and call the hospital forward results or other test here in 24-48 hrs. Diagnosed PID most likely STD as source This patient was originally seen by GRISELDA Burch.? I agree with his history, evaluation, and treatment. Lab Data : 07/20/21 19:08 07/20/21 19:08 Labs/Radiology: Laboratory Results WBC 9.5 10^3/uL (4.0-10.0) 07/20/21 19:08 RBC 5.02 10^6/uL (4.1-5.3) 07/20/21 19:08 Hgb 14.3 g/dL (11.5-15.3) 07/20/21 19:08 Hct 41.1 % (37.0-47.0) 07/20/21 19:08 MCV 81.9 fl (81-99) 07/20/21 19:08 MCH 28.5 pg (28.0-34.0) 07/20/21 19:08 MCHC 34.8 g/dL (30.0-36.0) 07/20/21 19:08 RDW 13.3 % (12.1-15.1) 07/20/21 19:08 Plt Count 265 10^3/cmm (130-400) 07/20/21 19:08 MPV 11.3 fL (7.4-10.4) H 07/20/21 19:08 Neut % (Auto) 55.6 % 07/20/21 19:08 Lymph % (Auto) 31.3 % 07/20/21 19:08 [place] % (Auto) 9.4 % 07/20/21 19:08 Eos % (Auto) 2.9 % 07/20/21 19:08 Baso % (Auto) 0.4 % 07/20/21 19:08 Neut # (Auto) 5.28 10^3/uL (1.8-7.7) 07/20/21 19:08 Lymph # (Auto) 3.0 10^3/uL (0.8-4.8) 07/20/21 19:08 [place] # (Auto) 0.9 10^3/uL (0.2-0.9) 07/20/21 19:08 Eos # (Auto) 0.3 10^3/uL (0.0-0.8) 07/20/21 19:08 Baso # (Auto) 0.0 10^3/uL (0.0-0.1) 07/20/21 19:08 Nucleated RBC % (auto) 0 % 07/20/21 19:08 Nucleated RBCs # 0.0 /100WBC 07/20/21 19:08 Sodium 131 mmol/L (136-145) L 07/20/21 19:08 Potassium 4.4 mmol/L (3.5-5.1) 07/20/21 19:08 Chloride 98 mmol/L (98-107) 07/20/21 19:08 Carbon Dioxide 22 mmol/L (22-29) 07/20/21 19:08 Anion Gap 15.4 (5-19) 07/20/21 19:08 BUN 15 mg/dL (6-20) 07/20/21 19:08 Creatinine 0.6 mg/dL (0.5-0.9) 07/20/21 19:08 GFR Calculation 125.0 mL/min (90-130) 07/20/21 19:08 Glucose 87 mg/dL (65-115) 07/20/21 19:08 Calculated Osmolality 272 mOsm/kg (285-295) L 07/20/21 19:08 Calcium 9.1 mg/dL (8.5-10.5) 07/20/21 19:08 Total Bilirubin 0.2 mg/dL (0.15-1.2) 07/20/21 19:08 AST 21 U/L (0-32) 07/20/21 19:08 ALT 17 U/L (0-33) 07/20/21 19:08 Alkaline Phosphatase 173 IU/L (35-105) H 07/20/21 19:08 Total Protein 8.3 g/dL (6.6-8.7) 07/20/21 19:08 Albumin 4.5 g/dL (3.5-5.2) 07/20/21 19:08 Globulin 3.8 g/dL (1.3-4.6) 07/20/21 19:08 Lipase 25 U/L (13-60) 07/20/21 19:08 HCG, Qual Negative (Negative) 07/20/21 19:08 Urine Color Yellow (Yellow) 07/20/21 19:08 Urine Appearance Clear (CLEAR) 07/20/21 19:08 Urine pH 5 (5-7) 07/20/21 19:08 Ur Specific [place] 1.025 (1.005-1.030) 07/20/21 19:08 Urine Protein Neg (Negative) 07/20/21 19:08 Urine Glucose (UA) Norm (Normal) 07/20/21 19:08 Urine Ketones Negative (Negative) 07/20/21 19:08 Urine Blood Neg (Negative) 07/20/21 19:08 Urine Nitrate Negative (Negative) 07/20/21 19:08 Urine Bilirubin Neg (Negative) 07/20/21 19:08 Urine Urobilinogen Norm mg/dL (Negative) 07/20/21 19:08 Ur Leukocyte Esterase Negative (Negative) 07/20/21 19:08 Discharge Plan Discharge Patient Disposition: Home Clinical Impression: Acute pelvic inflammatory disease (PID) Condition: Stable Prescriptions: New doxycycline hyclate 100 mg capsule 100 mg PO BID 7 Days Qty: 14 0RF No Action prenat.vits,maxx,lqp-tqji-vgxkn Tablet 1 tab PO DAILY 0RF ciprofloxacin-dexamethasone [Ciprodex] 0.3-0.1 % drops,suspension 4 drp otic (ear) Q12H 7 Days Qty: 7.5 0RF Discharge Orders: Discharge ED (Routine); Ordered 07/20/21 Ordered By: Elijah Teague Referrals: Jazmine Castro DO [Primary Care Provider] - Discharge Diet: Usual diet Discharge Activity: Increase activity as tolerated Patient Instructions: Pelvic Inflammatory Disease (ED) Activity Restrictions/Additional Instructions: Follow-up with medical provider as directed. Take medications as prescribed. Return to the ER or your medical provider if condition worsens. Please read and understand discharge instructions. If any questions ask please. If symptoms worsen please return the ER or follow-up your primary care provider. Call the hospital in 24 to 48 hoursfor results of other tests that were completed tonight. Coding Level of Care Code ED Powder Compounder for Liberty Pierce Exam Comprehensive
[2021-07-20 19:09] VITALS: BP 126/79; O2SAT 99
[2021-07-20 19:14] LABS: Basophils % 0.4 %; Eosinophils # 0.3 10^3/uL (0.0-0.8); Eosinophils % 2.9 %; Hematocrit 41.1 % (37.0-47.0); Hemoglobin 14.3 g/dL (11.5-15.3); Lymphocytes % 31.3 %; Mean Corpuscular HGB Conc 34.8 g/dL (30.0-36.0); Mean Corpuscular Hemoglobin 28.5 pg (28.0-34.0); Mean Corpuscular Volume 81.9 fl (81-99); Mean Platelet Volume 11.3 fL (7.4-10.4); Monocytes # 0.9 10^3/uL (0.2-0.9); Monocytes % 9.4 %; Neutrophils # 5.28 10^3/uL (1.8-7.7); Neutrophils % 55.6 %; Nucleated Red Blood Cells % 0 %; Platelet Count 265 10^3/cmm (130-400); Red Blood Count 5.02 10^6/uL (4.1-5.3); Red Cell Distribution Width 13.3 % (12.1-15.1); White Blood Count 9.5 10^3/uL (4.0-10.0)
[2021-07-20 19:20] LABS: Add Urine Microscopic? NO; Charge for UA Resulting for Rev
[2021-07-20 19:24] LABS: Bilirubin Urine Neg (Negative); Blood Urine Neg (Negative); Glucose Urine UA Norm (Normal); HCG Qualitative Urine. Negative (Negative); Ketones Urine Negative (Negative); Leukocyte Esterase Urine Negative (Negative); Nitrate Urine Negative (Negative); Protein Urine Neg (Negative); Specific Gravity, Urine 1.025 (1.005-1.030); Urine Appearance Clear (CLEAR); Urine Color Yellow (Yellow); Urobilinogen Urine Norm (Negative); pH Urine 5 (5-7)
[2021-07-20 19:30] VITALS: BP 127/88; O2SAT 98
[2021-07-20 19:34] LABS: Alanine Aminotransferase 17 U/L (0-33); Albumin Level 4.5 g/dL (3.5-5.2); Alkaline Phosphatase 173 IU/L (35-105); Blood Urea Nitrogen 15 mg/dL (6-20); Calcium 9.1 mg/dL (8.5-10.5); Carbon Dioxide 22 mmol/L (22-29); Chloride 98 mmol/L (98-107); Globulin 3.8 g/dL (1.3-4.6); Glucose 87 mg/dL (65-115); Lipase 25 U/L (13-60); Osmolality Calculated 272 mOsm/kg (285-295); Sodium 131 mmol/L (136-145); Total Bilirubin 0.2 mg/dL (0.15-1.2); Total Protein 8.3 g/dL (6.6-8.7)
[2021-07-20 19:45] LABS: Anion Gap 15.4 (5-19)
[2021-07-20 19:46] LABS: Aspartate Amino Transferase 21 U/L (0-32); Potassium 4.4 mmol/L (3.5-5.1)
[2021-07-20 20:00] VITALS: BP 127/88
[2021-07-20 20:36] VITALS: O2SAT 92
[2021-07-20] MEDS: doxycycline 100 mg Tablet PO (20:52)
== END 2021-07-20 21:12 | disposition home or self-care (01) ==
PROVIDERS: Emergency Provider Nurse Practitioner Family; PCP Family Medicine
DX: N73.0 Acute parametritis and pelvic cellulitis (principal)
CPT/HCPCS: 80053; 81003; 81025; 83690; 85025; 87070; 87205; 87210; 87491; 87591; 96372; 99284; E0352; J0696

== ENCOUNTER → 2021-07-25 09:44 | Outpatient (BNVA) | payer BC, MEDICAID, SELFPAY | PROVIDERS: PCP Family Medicine; Visit Provider Obstetrics & Gynecology | DX: N92.6 Irregular menstruation, unspecified (principal); Z32.01 Encounter for pregnancy test, result positive | CPT/HCPCS: 81025; 84702 ==

== ENCOUNTER → 2021-07-29 08:36 | Outpatient (BNVA) | payer BC, MEDICAID, SELFPAY | PROVIDERS: PCP Family Medicine; Visit Provider Obstetrics & Gynecology | DX: Z32.01 Encounter for pregnancy test, result positive (principal) | CPT/HCPCS: 84702 ==

== ENCOUNTER → 2021-08-30 08:57 | Outpatient (BNVA) | payer BC, MEDICAID, SELFPAY | PROVIDERS: PCP Family Medicine; Visit Provider Obstetrics & Gynecology | DX: Z34.90 Encounter for supervision of normal pregnancy, unspecified, unspecified trimester (principal) | CPT/HCPCS: 80307; 81000; 84443; 85025; 86592; 86762; 86803; 86850; 86900; 87086; 87340; 87806 ==

== ENCOUNTER 2021-09-03 11:25 | Outpatient (CLI) | payer BC, MEDICAID, SELFPAY ==
--- NOTE | 2021-09-03 11:30 | US_ITS ---
WS: [id number] EARLY OBSTETRICAL ULTRASOUND (<14 WEEKS). HISTORY: Z34.90 - Encounter for supervision of normal , u... COMPARISON: None available. Single intrauterine gestational sac is identified. Cardiac activity at 176 BPM. [place]-rump length corona sures 2.8 cm which corresponds to a gestation of 9w4d. The pole is difficult to visualize. Norm al-appearing yolk sac and amnion demonstrated. No subchorionic hemorrhage. No free fluid. Neither ovary is well visualized. No adnexal masses. Cervix is closed. Cervical length of 4.3 cm. US/US OB transvaginal [id number] IMPRESSION: 1. Single intrauterine gestation of 9 weeks 4 days with an EDC of 04/04/2022. 2. Normal cardiac activity.
== END 2021-09-03 11:26 | disposition home or self-care (01) ==
LOC: RAD 11:27
PROVIDERS: PCP Family Medicine; Visit Provider Obstetrics & Gynecology
DX: Z34.90 Encounter for supervision of normal pregnancy, unspecified, unspecified trimester (principal)
CPT/HCPCS: 76817

== ENCOUNTER → 2021-09-20 14:50 | Outpatient (BNVA) | payer BC, MEDICAID, SELFPAY | PROVIDERS: PCP Family Medicine; Visit Provider Obstetrics & Gynecology | DX: Z34.80 Encounter for supervision of other normal pregnancy, unspecified trimester (principal) | CPT/HCPCS: 81000; 87491; 87591; 87661; 88175 ==

== ENCOUNTER → 2021-10-21 10:29 | Outpatient (BNVA) | payer BC, MEDICAID, SELFPAY | PROVIDERS: PCP Family Medicine; Visit Provider Obstetrics & Gynecology | DX: Z34.90 Encounter for supervision of normal pregnancy, unspecified, unspecified trimester (principal) | CPT/HCPCS: 81000; 82950 ==

== ENCOUNTER → 2021-11-21 08:40 | Outpatient (BNVA) | payer BC, MEDICAID, SELFPAY | PROVIDERS: PCP Family Medicine; Visit Provider Obstetrics & Gynecology | DX: Z34.90 Encounter for supervision of normal pregnancy, unspecified, unspecified trimester (principal) | CPT/HCPCS: 81000; 87086 ==

== ENCOUNTER → 2022-01-01 12:51 | Outpatient (BNVA) | payer BC, MEDICAID, SELFPAY | PROVIDERS: PCP Family Medicine; Visit Provider Obstetrics & Gynecology | DX: Z34.82 Encounter for supervision of other normal pregnancy, second trimester | CPT/HCPCS: 81000 ==

== ENCOUNTER → 2022-01-13 10:35 | Outpatient (BNVA) | payer BC, MEDICAID, SELFPAY | PROVIDERS: PCP Family Medicine; Visit Provider Obstetrics & Gynecology | DX: Z34.90 Encounter for supervision of normal pregnancy, unspecified, unspecified trimester (principal) | CPT/HCPCS: 81000; 82950; 85025 ==

== ENCOUNTER → 2022-01-30 13:55 | Outpatient (BNVA) | payer BC, MEDICAID, SELFPAY | PROVIDERS: PCP Family Medicine; Visit Provider Obstetrics & Gynecology | DX: Z34.90 Encounter for supervision of normal pregnancy, unspecified, unspecified trimester (principal) | CPT/HCPCS: 81000 ==

== ENCOUNTER → 2022-02-12 09:51 | Outpatient (BNVA) | payer BC, MEDICAID, SELFPAY | PROVIDERS: PCP Family Medicine; Visit Provider Obstetrics & Gynecology | DX: Z34.90 Encounter for supervision of normal pregnancy, unspecified, unspecified trimester (principal) | CPT/HCPCS: 81000 ==

== ENCOUNTER → 2022-03-10 09:00 | Outpatient (BNVA) | payer BC, MEDICAID, SELFPAY | PROVIDERS: PCP Family Medicine; Visit Provider Obstetrics & Gynecology | DX: Z34.90 Encounter for supervision of normal pregnancy, unspecified, unspecified trimester (principal); R82.90 Unspecified abnormal findings in urine | CPT/HCPCS: 81000; 87081; 87086 ==

== ENCOUNTER → 2022-03-17 14:30 | Outpatient (BNVA) | payer BC, MEDICAID, SELFPAY | PROVIDERS: PCP Family Medicine; Visit Provider Obstetrics & Gynecology | DX: Z34.90 Encounter for supervision of normal pregnancy, unspecified, unspecified trimester (principal) | CPT/HCPCS: 81000 ==

== ENCOUNTER → 2022-03-27 14:00 | Outpatient (BNVA) | payer BC, MEDICAID, SELFPAY | PROVIDERS: PCP Family Medicine; Visit Provider Obstetrics & Gynecology | DX: Z34.90 Encounter for supervision of normal pregnancy, unspecified, unspecified trimester (principal) | CPT/HCPCS: 81000 ==

== ENCOUNTER 2022-03-31 09:52 | Inpatient (IN) | payer BC, MEDICAID, SELFPAY ==
[2022-03-31] VITALS (45 sets, daily range): BP systolic 92–177; BP diastolic 46–116; PULSE 64–115; RESP 18; TEMP 35.8–36.6; O2SAT 99–100; BMI 35.2
[2022-03-31] MEDS: ampicillin 2,000 MG in sodium chloride 0.9% (plus) 50 ML 100 MG IV (10:47)
[2022-03-31] MEDS: dextrose 5%-lactated ringers 1,000 ML 125 ML IV (10:47)
[2022-03-31 10:48] LABS: Basophils % 0.4 %; Eosinophils # 0.1 10^3/uL (0.0-0.8); Eosinophils % 1.2 %; Hematocrit 37.9 % (37.0-47.0); Hemoglobin 12.1 g/dL (11.5-15.3); Lymphocytes # 2.6 10^3/uL (0.8-4.8); Lymphocytes % 26.3 %; Mean Corpuscular HGB Conc 31.9 g/dL (30.0-36.0); Mean Corpuscular Hemoglobin 24.7 pg (28.0-34.0); Mean Corpuscular Volume 77.5 fl (81-99); Mean Platelet Volume 11.9 fL (7.4-10.4); Monocytes # 0.7 10^3/uL (0.2-0.9); Monocytes % 7.4 %; Neutrophils % 63.9 %; Nucleated Red Blood Cells % 0 %; Platelet Count 286 10^3/cmm (130-400); Red Blood Count 4.89 10^6/uL (4.1-5.3); White Blood Count 9.7 10^3/uL (4.0-10.0)
[2022-03-31] MEDS: miSOPROStol 100 mcg tablet 25 MCG VAGINAL ×2 (10:57→15:04)
[2022-03-31] MEDS: ampicillin 1,000 MG in sodium chloride 0.9% (plus) 50 ML 100 MG IV ×3 (14:27→22:30)
[2022-03-31] MEDS: acetaminophen 325 mg Tablet 650 MG PO (14:37)
[2022-03-31] MEDS: lactated ringers 1,000 ML 999 ML IV ×2 (19:41→21:06)
--- NOTE | 2022-03-31 20:40 | ANES.PREANE2 ---
Pre-Anesthetic Assessment Height/Weight: Height 1.7 m Weight 102.058 kg Temp Pulse Resp BP O2 Del Method 97.2 F L 84 18 117/73 03/31/22 18:19 03/31/22 20:19 03/31/22 16:19 03/31/22 20:19 03/31/22 10:00 Preop Diagnosis: Intrauterine epidural Familial anesthetic complications: none Was Beta Arron taken within 24 hours: N/A Was Clonidine taken within 24 hours: N/A Exam alert, oriented x 3, clear to auscultation bilaterally and regular rate & rhythm Airway Submandibular: within normal limits Cervical ROM: within normal limits Mallampati: Class II Dentition: full Pulmonary None reported CV/HEM None reported None reported Hepatic None reported GI Gastroesophageal Reflux Disease Metabolic None reported Musc/skel None reported Neuropsych None reported Anesthetic Plan ASA status: 2 Anesthesia: Regional (specify below) Risk of > 500 ml blood loss (7ml/kg in children): No Medications/Allergies Home Medications Medication Instructions Recorded Confirmed Last Taken Type vitamin no.138-folic acid tab PO 08/30/21 03/27/22 Unknown History 400 mcg-dha 25 mg chewable tablet (Alive ) citalopram 10 mg tablet (Celexa) 10 mg PO DAILY #30 tabs 01/14/22 03/27/22 Unknown Rx Allergies Allergy/AdvReac Type Severity Reaction Status Date / Time No Known Allergies Allergy Verified 03/27/22 13:33 Current Medications Generic Name Dose Route Start Last Admin Trade Name Joelq PRN Reason Stop Dose Admin Acetaminophen 650 mg 03/31/22 09:58 03/31/22 14:37 Acetaminophen 325 Mg Tablet PO 650 mg Q6H PRN Administration Mild pain or temp > 100.4 Dextrose/Lactated Ringer's 1,000 mls @ 125 mls/hr 03/31/22 10:00 03/31/22 10:47 Dextrose 5%-Lactated Ringers IV 125 mls/hr .Q8H JUAN MANUEL Administration Ampicillin Sodium 1,000 mg/ 50 mls @ 100 mls/hr 03/31/22 14:30 03/31/22 18:50 Sodium Chloride IV Infused Q4H JUAN MANUEL Infusion Protocol Lactated Ringer's 1,000 mls @ 999 mls/hr 03/31/22 19:33 03/31/22 19:41 Lactated Ringers IV 999 mls/hr .Q1H1M PRN Administration See label comments PFSH Anesthesia Medical History Patient denies medical problems Denies diabetes, asthma, hypertension, seizures, DVT/PE PCP: Dr. Castro Surgical History No history of previous surgery Family History Grandmother Ovarian cancer maternal, diagnosed at age 40 Family/Other Breast cancer Maternal aunt, diagnosed in her 50s Patient denies medical problems Denies family history of: Hypertension, Diabetes, Heart Disease, Stroke, Hypercholesterolemia, Thyroid Problems, Uterine Cancer, Colon Cancer Social History Smoking and tobacco status: never smoked Female Reproductive History Date of last menstrual period: 06/29/21 : 4 Data Anesthesia 03/31/22 10:10 Short CBC 03/31/22 Range/Units 10:10 WBC 9.7 (4.0-10.0) 10^3/uL Hgb 12.1 (11.5-15.3) g/dL Hct 37.9 (37.0-47.0) % MCV 77.5 L (81-99) fl Plt Count 286 (130-400) 10^3/cmm Neut % (Auto) 63.9 % Neut # (Auto) 6.20 (1.8-7.7) 10^3/uL Cardiac Studies: No Data to Display
--- NOTE | 2022-03-31 21:02 | ANES.PROC ---
Anesthesia Procedures Procedure/Date: 03/31/22 epidural Procedure Narrative: epidural complete, bolus given, epidural pump initiated with TRANSPORTATION BROKER education given, vitals taken during procedure and satisfactory throughout, patient admits to decrease pain, report of procedure to OB RN Epidural: Time Out Performed: Yes Consents Signed: Procedure Consent Consent: requested by attending/covering physician, from patient, risks and benefits reviewed and patient agrees to proceed Lumbar Level: L3-L4 Epidural position: sitting Epidural procedure: sterile prep of area, 1% lidocaine to numb the area (3 mL), 18 g needle, negative for paresthesia passed, neg for paresthesia, test dose given, 1.5% xylocaine 1:200k epi (5 mL), 0.2% Ropivacaine bolus ml (5 mL), placed PCEA, no systemic response, sterile dressing applied, L.U.D. no apparent complications and 0.2% Ropiavacaine @ mls/hr (13 mL/hr)
[2022-03-31] MEDS: ondansetron 2 mg/ML SDV 2 mL 4 MG IVP (21:19)
[2022-03-31] MEDS: oxytocin 30 UNIT/500 ML BAG IV (21:49)
[2022-04-01] VITALS (39 sets, daily range): BP systolic 99–142; BP diastolic 50–105; PULSE 53–160; RESP 15–16; TEMP 36–36.7
[2022-04-01] MEDS: dextrose 5%-lactated ringers 1,000 ML 999 ML IV ×2 (02:08→03:12)
[2022-04-01] MEDS: ondansetron 2 mg/ML SDV 2 mL 4 MG IVP (02:59)
[2022-04-01] MEDS: ampicillin 1,000 MG in sodium chloride 0.9% (plus) 50 ML 100 MG IV (02:59)
--- NOTE | 2022-04-01 04:00 | PM.OPHPUD ---
Labor & Delivery H&P Update Date of Procedure: April 01, 2022 Date H&P Performed: 03/27/22 H&P update information: I have reviewed H&P completed within last 30 days, I have examined patient prior to procedure and No changes to prior documentation Admission Diagnosis: at 39 weeks 3 days. Induction at term, GBS positive Preop diagnosis: Intrauterine
--- NOTE | 2022-04-01 04:04 | P.PCNOB_ITS ---
Delivery Note: Date of delivery: April 01, 2022 Pre-delivery diagnoses: iup@ 39 weeks 3 days, GBS positive, morbid obesity. Post-delivery diagnoses: same-delivered Procedure: Delivering Physician: Chinedu Estimated blood loss (mL): 100 Findings: term male in the ALYSSA presentation, small placental abruption at time of delivery. placenta sent to pathology Pre-Delivery Course: The patient was admitted for induction of labor at term. She received two doses of cytotec and was having regular contractions and made cervical change to 2/50/-2. Pitocin was started. She received an epidural for pain control. Three doses of IV ampicillin was given for GBS prophylaxis. She had complete cervical dilation and began pushing. Delivery: The patient had complete cervical dilation and began to push. The head delivered in the ALYSSA position over an intact perineum under epidural anesthesia. The nose and mouth were bulb suctioned. The shoulders and body delivered atraumatically. The baby was placed onto the mother's abdomen. The cord was clamped and cut. Cord blood was obtained. The placenta delivered spontaneously. It was inspected and found to be intact. Inspection of the perineum revealed no lacerations and no repair required. Estimated blood loss 100 mL. Apgars on baby were 8 at 1 minute and 9 at 5 minutes. Weight of baby is 8 pounds 1 ounce. Mother and baby were stable post delivery. History History History 4 Term 2 0 Miscarriages/Ectopic 1 Living Children 2 Coding Level of Care Code Acute Instantizer Operator for Jose Alfredog Stan
[2022-04-01] MEDS: acetaminophen 325 mg Tablet 650 MG PO (06:45)
[2022-04-01] MEDS: prenatal vitamin Capsule 1 CAP PO (09:18)
[2022-04-01] MEDS: docusate sodium 100 mg Capsule PO (09:18)
[2022-04-01] MEDS: ibuprofen 800 mg tablet PO ×2 (09:18→15:30)
[2022-04-01] MEDS: lanolin oint 7 gm 1 APPLIC TOPICAL (09:18)
[2022-04-01] MEDS: benzocaine-menthol 78 gm Canister 1 SPRAY TOPICAL (09:19)
[2022-04-01] MEDS: citalopram 20 mg Tablet 10 MG PO (09:23)
--- NOTE | 2022-04-01 14:58 | ANE.PACU2 ---
Inpatient post-anesthesia follow up: Airway intact: Yes Vital signs: Temperature 98.0 F Pulse Rate 70 Respiratory Rate 16 Blood Pressure 110/55 Pulse Oximetry 100 Oxygen Delivery Me thod Room Air Oxygen Flow Rate Fraction of Inspir ed Oxygen Hydration adequate: Yes Nausea and vomiting: No Pain level: 2 Mental status: Baseline
[2022-04-01 16:21] LABS: Hematocrit 31.9 % (37.0-47.0); Hemoglobin 10.2 g/dL (11.5-15.3); Mean Corpuscular Hemoglobin 24.9 pg (28.0-34.0); Mean Platelet Volume 11.8 fL (7.4-10.4); Platelet Count 235 10^3/cmm (130-400); Red Blood Count 4.09 10^6/uL (4.1-5.3); White Blood Count 12.7 10^3/uL (4.0-10.0)
[2022-04-02] MEDS: acetaminophen 325 mg Tablet 650 MG PO (01:40)
[2022-04-02] MEDS: HYDROcodone-acetaminophen 5-325 mg Tablet PO (01:49)
[2022-04-02 04:33] VITALS: BP 82/48; PULSE 60
--- NOTE | 2022-04-02 09:34 | PM.DCS ---
Discharge Providers Date of Admission: 03/31/22 09:52 Date of Discharge: April 02, 2022 Attending Provider at Admission: Joy Che MD Attending Provider at Discharge: Joy Che MD Primary Care Provider: Jazmine Castro DO Hospital Course Hospital Course The patient was admitted for induction at term. She had spontaneous delivery of a term . She did well and requested discharge on day #1. Physical Exam Narrative: doing well this morning. no concerns. Requesting discharge home. Const: COMMON NORMALS: no acute distress, patient oriented x3, no limitations, healthy appearing, alert and well nourished GENERAL APPEARANCE: cooperative, comfortable, well kempt and well developed ORIENTATION/CONSCIOUSNESS: Yes awake, Yes oriented to person, Yes oriented to place and Yes oriented to time Resp: COMMON NORMALS: normal respiratory effort and clear to auscultation bilaterally AUSCULTATION: clear to auscultation bilaterally GI: COMMON NORMALS: Soft to palpation and non-tender PALPATION: Yes Soft to palpation Extremity: COMMON NORMALS: no calf tenderness Neuro: COMMON NORMALS: patient oriented x3 SENSORIUM/ORIENTATION: Yes alert, Yes oriented to person, Yes oriented to place and Yes oriented to time Psych: APPEARANCE: Yes well kempt Urinary Catheter Management: Jones: Cath Placed During This Visit: yes, but has since been removed by the nurse Reason for Continuing Indwelling Catheter: Decision to DC Catheter Urinary Catheter Date of Insertion: 03/31/22 Urinary Catheter Time of Insertion: 22:06 Date Urinary Catheter Removed: 04/01/22 Time Urinary Catheter Discontinued: 03:15 Discharge Data Studies Completed and Pending Laboratory Results WBC 12.7 10^3/uL (4.0-10.0) H 04/01/22 15:58 RBC 4.09 10^6/uL (4.1-5.3) L 04/01/22 15:58 Hgb 10.2 g/dL (11.5-15.3) L 04/01/22 15:58 Hct 31.9 % (37.0-47.0) L 04/01/22 15:58 MCV 78.0 fl (81-99) L 04/01/22 15:58 MCH 24.9 pg (28.0-34.0) L 04/01/22 15:58 MCHC 32.0 g/dL (30.0-36.0) 04/01/22 15:58 RDW 14.0 % (12.1-15.1) 04/01/22 15:58 Plt Count 235 10^3/cmm (130-400) 04/01/22 15:58 MPV 11.8 fL (7.4-10.4) H 04/01/22 15:58 Neut % (Auto) 63.9 % 03/31/22 10:10 Lymph % (Auto) 26.3 % 03/31/22 10:10 [place] % (Auto) 7.4 % 03/31/22 10:10 Eos % (Auto) 1.2 % 03/31/22 10:10 Baso % (Auto) 0.4 % 03/31/22 10:10 Neut # (Auto) 6.20 10^3/uL (1.8-7.7) 03/31/22 10:10 Lymph # (Auto) 2.6 10^3/uL (0.8-4.8) 03/31/22 10:10 [place] # (Auto) 0.7 10^3/uL (0.2-0.9) 03/31/22 10:10 Eos # (Auto) 0.1 10^3/uL (0.0-0.8) 03/31/22 10:10 Baso # (Auto) 0.0 10^3/uL (0.0-0.1) 03/31/22 10:10 Nucleated RBC % (auto) 0 % 03/31/22 10:10 Nucleated RBCs # 0.0 /100WBC 03/31/22 10:10 Vitals Last Vital Signs Temp 97.0 F L 04/01/22 21:19 Pulse 60 04/02/22 04:33 Resp 15 04/01/22 15:42 BP 82/48 04/02/22 04:33 Pulse Ox 100 03/31/22 21:48 O2 Del Method 03/31/22 22:06 Discharge Plan Discharge Patient Disposition: Home Condition: Stable Prescriptions: Continued Alive 400 mcg- 25 mg tablet,chewable PO citalopram [Celexa] 10 mg tablet 10 mg PO DAILY Qty: 30 12RF Discharge Orders: Discharge Order (Routine); Ordered 04/02/22 Ordered By: Joy Che Patient Instructions: Opioid Safety Discharge Attestations Time Spent in Discharge Care*: less than 30 min Quality Metrics Clinical Quality Measures [ No reported AMI, CVA or VTE this stay] Coding Level of Care Code Acute Chg DC note
[2022-04-02] MEDS: prenatal vitamin Capsule 1 CAP PO (09:37)
[2022-04-02] MEDS: ibuprofen 800 mg tablet PO (09:38)
[2022-04-02] MEDS: citalopram 20 mg Tablet 10 MG PO (09:38)
[2022-04-02] MEDS: docusate sodium 100 mg Capsule PO (09:38)
[2022-04-02 11:45] VITALS: BP 121/63; PULSE 60; RESP 17; TEMP 36.4
[2022-04-02 11:47] VITALS: BP 121/63; PULSE 60
== END 2022-04-02 11:55 | disposition home or self-care (01) | DRG 807 ==
PROVIDERS: Admitting Provider Obstetrics & Gynecology; PCP Family Medicine; Visit Provider Obstetrics & Gynecology
DX: O99.824 Streptococcus B carrier state complicating childbirth (principal); Z37.0 Single live birth; O99.214 Obesity complicating childbirth; E66.01 Morbid (severe) obesity due to excess calories; O99.344 Other mental disorders complicating childbirth; O45.93 Premature separation of placenta, unspecified, third trimester; Z3A.39 39 weeks gestation of pregnancy; F32.A Depression, unspecified
CPT/HCPCS: 36415; 51702; 59025; 59409; 85025; 85027; 88307; 96374; 96376; 99211; J0290; J2405; J2590; J2795; J7120; J7121

== ENCOUNTER → 2023-05-12 16:41 | Outpatient (BNVA) | payer BC, MEDICAID, SELFPAY | PROVIDERS: PCP Family Medicine Adult Medicine; Visit Provider Nurse Practitioner | DX: Z32.01 Encounter for pregnancy test, result positive | CPT/HCPCS: 81025 ==

== ENCOUNTER 2024-01-04 04:46 | Emergency (ER) | payer BC, MEDICAID, SELFPAY ==
[2024-01-04 04:58] VITALS: BP 134/90; PULSE 77; RESP 16; TEMP 36.4; O2SAT 99; BMI 35.2
--- NOTE | 2024-01-04 05:54 | ED_ITS ---
HPI - Dental/Oral General: Chief complaint: Dental/Oral Stated complaint: Left side dental pain Time Seen by Provider: 01/04/24 05:15 History of Present Illness: 23-year-old female who is 39 weeks pregn ant. She presents with left lower jaw swelling, pain, for the last 3 days. No fever. No vomiting. No drainage. No trouble breathing. Related Data Previous Rx's Medication Instructions Recorded lisinopril 5 mg tablet 5 mg PO DAILY blood pressure #30 04/07/23 tabs escitalopram oxalate 10 mg tablet 10 mg PO DAILY mental health #30 07/16/23 tabs dicyclomine 10 mg capsule 10 mg PO BID #6 caps 11/20/23 clindamycin HCl 300 mg capsule 300 mg PO Q6H 10 days #40 caps 01/04/24 hydrocodone 5 mg-acetaminophen 325 1 tab PO Q8H PRN pain #7 tabs 01/04/24 mg tablet Allergies Allergy/AdvReac Type Severity Reaction Status Date / Time No Known Allergies Allergy Verified 11/20/23 16:20 [facility] ED PFS: Medical History Hypertension Anxiety and depression Surgical History No history of previous surgery Family History Grandmother Ovarian cancer maternal, diagnosed at age 40 Family/Other Breast cancer Maternal aunt, diagnosed in her 50s Patient denies medical problems Denies family history of: Hypertension, Diabetes, Heart Disease, Stroke, Hypercholesterolemia, Thyroid Problems, Uterine Cancer, Colon Cancer Social History Smoking and tobacco/nicotine status: current every day tobacco/nicotine user Alcohol intake: never Substance/Drug Use: never Physical Exam Const: COMMON NORMALS: no acute distress GENERAL APPEARANCE: cooperative; not ill appearing and not frail appearing HENMT: COMMON NORMALS: atraumatic and Normal external nose present HEAD & SCALP: atraumatic NOSE: Normal external nose present MOUTH: tongue normal; no drooling, no muffled voice and no trismus TEETH & GINGIVA: Yes abnormal tooth and associated gingiva (Left lower posterior most molar, gingival swelling, abscess present.) Eye: COMMON NORMALS: Equal, round and reactive pupils present and EOMs intact bilaterally PUPIL: Yes Equal, round and reactive pupils present Neck/C-Spine: GENERAL: Yes trachea midline Chest: CHEST: Yes Symmetrical chest wall rise Resp: COMMON NORMALS: normal respiratory effort, No retractions and No use of accessory muscles Cardio: COMMON NORMALS: regular rate and regular rhythm RATE: regular rate RHYTHM: regular rhythm Neuro: CIRILO COMA SCALE: document GCS findings Cirilo coma scale eye opening: Spontaneous [place] coma scale verbal response: Orientated Cirilo coma scale motor response: Obey commands [place] coma scale total score: 15 SENSORY EXAM: Yes extremities (intact) Psych: COMMON NORMALS: speech normal SPEECH: Yes normal speech Skin: COMMON NORMALS: no rashes or lesions noted GENERAL SKIN EXAM: no rashes or lesions noted Course Vital Signs: Vital signs: Vital Signs Temperature 97.6 F 01/04/24 04:58 Pulse Rate 77 01/04/24 04:58 Respiratory Rate 16 01/04/24 04:58 Blood Pressure 134/90 01/04/24 04:58 Pulse Oximetry 99 01/04/24 04:58 Oxygen Delivery Me thod Room Air 01/04/24 04:58 MDM - Dental/Oral Medical Decision Making 23-year-old female. Left lower molar abscess. Clindamycin, 1 dose of dexamethasone for swelling. Pain medication, short course. She was encouraged not to use pain medication, so as fetus will not be dependent on opioids if she delivers. She understands. Outpatient dental follow-up. No radiology studies performed this visit Discharge Plan Discharge Patient Disposition: Home Clinical Impression: Dental abscess Condition: Stable Prescriptions: New hydrocodone-acetaminophen 5-325 mg tablet 1 tab PO Q8H PRN (Reason: pain) Qty: 7 0RF clindamycin HCl 300 mg capsule 300 mg PO Q6H 10 Days Qty: 40 0RF No Action lisinopril 5 mg tablet 5 mg PO DAILY Qty: 30 3RF escitalopram oxalate 10 mg tablet 10 mg PO DAILY Qty: 30 3RF dicyclomine 10 mg capsule 10 mg PO BID Qty: 6 0RF Discharge Orders: Discharge ED (Routine); Ordered 01/04/24 Ordered By: Jac Tuttle Referrals: Александр Lora MD [Primary Care Provider] - Patient Instructions: Dental Abscess (ED), Opioid Safety, Pain Management Activity Restrictions/Additional Instructions: See your dentist this week. Return for fever despite at least 3-4 doses of antibiotics, worsening pain or swelling despite antibiotics, other concerning symptoms. Please use pain medication sparingly, as you are , and pain medication can affect your baby at . Use Tylenol instead of pain medication prescribed preferably. Coding Level of Care Code ED Edger Tailer for Liberty Pierce
[2024-01-04] MEDS: clindamycin 150 mg Capsule 300 MG PO (06:06)
[2024-01-04] MEDS: HYDROcodone-acetaminophen 5-325 mg Tablet 2 TAB PO (06:07)
[2024-01-04] MEDS: dexamethasone 4 mg Tablet 10 MG PO (06:07)
[2024-01-04 06:12] VITALS: BP 135/100; PULSE 61; O2SAT 61
== END 2024-01-04 06:14 | disposition home or self-care (01) ==
PROVIDERS: Emergency Provider Emergency Medicine; PCP Family Medicine Adult Medicine
DX: O26.893 Other specified pregnancy related conditions, third trimester (principal); K04.7 Periapical abscess without sinus; O16.3 Unspecified maternal hypertension, third trimester; O99.333 Smoking (tobacco) complicating pregnancy, third trimester; F17.200 Nicotine dependence, unspecified, uncomplicated; Z3A.39 39 weeks gestation of pregnancy
CPT/HCPCS: 99283; J8540

== ENCOUNTER 2024-01-07 03:05 | Inpatient (IN) | payer BC, MEDICAID, SELFPAY ==
[2024-01-07] VITALS (28 sets, daily range): BP systolic 105–136; BP diastolic 53–82; PULSE 62–184; RESP 16–18; TEMP 35.6–36.9; O2SAT 95–100; BMI 34.2
[2024-01-07 03:04] LABS: Basophils % 0.2 %; Eosinophils % 0.3 %; Hematocrit 38.1 % (36-47); Lymphocytes # 2.7 10^3/uL (0.8-4.8); Lymphocytes % 21.2 %; Mean Corpuscular HGB Conc 32.8 g/dL (30-55); Mean Corpuscular Hemoglobin 25.8 pg (27-33); Mean Corpuscular Volume 78.7 fl (85-98); Mean Platelet Volume 11.8 fL (7.4-10.4); Monocytes # 0.8 10^3/uL (0.2-0.9); Monocytes % 6.4 %; Neutrophils # 8.99 10^3/uL (1.8-7.7); Neutrophils % 71.5 %; Nucleated Red Blood Cells % 0 %; Platelet Count 214 10^3/cmm (157-399); Red Blood Count 4.84 10^6/uL (3.85-5.65); Red Cell Distribution Width 14.2 % (12.1-15.1); White Blood Count 12.57 10^3/uL (3.29-11.43)
[2024-01-07] MEDS: lactated ringers 1,000 ML 999 ML IV ×2 (03:15→04:26)
--- NOTE | 2024-01-07 03:38 | P.ANESASSM_ITS ---
Pre-Anesthetic Assessment Height/Weight: Height 1.7 m Weight 99.337 kg Temp Pulse BP Pulse Ox 96.1 F L 85 125/57 100 01/07/24 03:28 01/07/24 03:58 01/07/24 03:58 01/07/24 03:57 Preop Diagnosis: labor pain epidural Familial anesthetic complications: none Was Beta Arron taken within 24 hours: N/A Was Clonidine taken within 24 hours: N/A Social No alcohol and No tobacco Exam alert and oriented x 3 Airway Submandibular: within normal limits Cervical ROM: within normal limits Mallampati: Class II Dentition: full History/ROS No significant complaints Anesthetic Plan ASA status: 2 Anesthesia: Anesthesia Evaluation and Regional (specify below) Medications/Allergies Home Medications Medication Instructions Recorded Confirmed Last Taken Type No Known Home Medications 01/07/24 01/07/24 Unknown History Allergies Allergy/AdvReac Type Severity Reaction Status Date / Time No Known Allergies Allergy Verified 11/20/23 16:20 [facility] Anesthesia Medical History Hypertension Anxiety and depression Surgical History No history of previous surgery Family History Grandmother Ovarian cancer maternal, diagnosed at age 40 Family/Other Breast cancer Maternal aunt, diagnosed in her 50s Patient denies medical problems Denies family history of: Hypertension, Diabetes, Heart Disease, Stroke, Hypercholesterolemia, Thyroid Problems, Uterine Cancer, Colon Cancer Social History Smoking and tobacco/nicotine status: current every day tobacco/nicotine user Alcohol intake: never Substance/Drug Use: never Female Reproductive History : 4 Data Anesthesia 01/07/24 02:57 Short CBC 01/07/24 Range/Units 02:57 WBC 12.57 H (3.29-11.43) 10^3/uL Hgb 12.50 (11.27-16.99) g/dL Hct 38.1 (36-47) % MCV 78.7 L (85-98) fl Plt Count 214 (157-399) 10^3/cmm Neut % (Auto) 71.5 % Neut # (Auto) 8.99 H (1.8-7.7) 10^3/uL Blood Bank 01/07/24 02:57 Blood Type O Positive Rho(D) Type Rh positive Antibody Screen Negative Cardiac Studies: 2 No Data to Display
--- NOTE | 2024-01-07 03:56 | ANES.PROC ---
Anesthesia Procedures Procedure/Date: 01/07/24 Epidural: Time Out Performed: Yes Consents Signed: Procedure Consent Consent: from patient, risks and benefits reviewed and patient agrees to proceed Lumbar Level: L4-L5 Epidural position: sitting Epidural procedure: sterile prep of area, 1% lidocaine to numb the area, 18 g needle, negative for paresthesia passed, neg for paresthesia, test dose given, 1.5% xylocaine 1:200k epi, placed PCEA, no systemic response, sterile dressing applied, L.U.D. no apparent complications and 0.2% Ropiavacaine @ mls/hr (13) Additional Comments: ROBBY at 6, neg. heme/CSF upon aspiration. taped at 12 at skin. bolus of 5ml 2% lido give at 0356 and 0401. pt states relief of sharp pain.
[2024-01-07] MEDS: ROPivacaine syringe 100 MG/50 ML SYRINGE 13 MG EPIDURAL (04:26)
[2024-01-07] MEDS: dextrose 5%-lactated ringers 1,000 ML 125 ML IV (05:49)
--- NOTE | 2024-01-07 06:07 | PM.DELIVERY ---
Delivery Note: Date of delivery: January 07, 2024 Pre-delivery diagnoses: 23-year-old 5 para 3-0-1-3 at 39 weeks estimated gestational age presenting in active labor Post-delivery diagnoses: Status post spontaneous vaginal delivery Procedure: Spontaneous vaginal delivery Delivering Physician: Marin Barnard Estimated blood loss (mL): 50 Pre-Delivery Course: The patient presented to the hospital having contractions. She started having contractions at about 12 midnight. She was not aware of any rupture of membranes. She would no other concerns. She presented to the hospital and was 5 cm dilated. An epidural was placed. She then progressed to complete without difficulty. Delivery: DELIVERY: The patient progressed to complete without difficulty. She delivered a female with a weight of 7 pounds 15 ounces with Apgars of 8, 9. The baby was delivered from the WONG position and placed on the mother's abdomen. The cord was then clamped and cut. There was no nuchal cord. There was no meconium. The placenta and 3 vessel cord were delivered intact shortly thereafter. The perineum and vaginal vault were carefully examined. No lacerations were noted. Both the mother and the baby were in stable condition. Post-Delivery Status: Good History History History 5 Term 3 0 Miscarriages/Ectopic 1 Living Children 3 A&P Assessment and plan (1) 39 weeks gestation of : I anticipate routine care. I will be leaving town, my partner will be covering for me for the remainder of her hospital stay. (2) Spontaneous vaginal delivery: Coding Level of Care Code Acute Code for Chg Fwd Diagnoses 39 weeks gestation of Z3A.39 Spontaneous vaginal delivery O80
--- NOTE | 2024-01-07 06:09 | P.HPUD_ITS ---
Labor & Delivery H&P Update Date of Procedure: January 07, 2024 Date H&P Performed: 01/05/24 Changes to previous documentation: The patient was 5 cm dilated upon arrival at the hospital Admission Diagnosis: 23-year-old 5 para 3-0-1-3 Preop diagnosis: labor pain Planned procedure: Spontaneous vaginal delivery Other information: The patient is an otherwise healthy 23-year-old female at 39 weeks estimated gestational age presenting to the hospital in active labor. As far s he is aware her membranes are intact. Her contractions started about 2 hours prior to arrival at the hospital. She has no other symptoms or concerns. Her labs were remarkable for blood type being O+. Her antibody screen was negative. She is rubella immune. She passed her glucose screen. Her GBS status was negative. Her infectious disease profile was within normal limits. Related Problem List Diagnoses (1) 39 weeks gestation of : A&P Assessment and plan (1) 39 weeks gestation of : I anticipate routine labor and vaginal delivery. Status: Acute
[2024-01-07] MEDS: oxytocin 30 UNIT/500 ML BAG 600 UNIT IV (06:18)
[2024-01-07] MEDS: acetaminophen 325 mg Tablet 650 MG PO (06:30)
[2024-01-07] MEDS: HYDROcodone-acetaminophen 5-325 mg Tablet PO (10:19)
--- NOTE | 2024-01-07 10:33 | PC.NURSE ---
0940 GOT PATIENT UP TO BATHROOM AND SHE WENT TO BATHROOM AND VOIDED LARGE AND AMOUNT AND WAS INSTRUCTED ON [facility] AND THEN SHE AMBULATED WELL TO OB 9. ORIENTED TO ROOM AND ALL THE THINGS.
[2024-01-07] MEDS: ibuprofen 800 mg tablet PO ×2 (14:56→20:30)
[2024-01-07 18:24] LABS: Hematocrit 30.8 % (36-47); Mean Corpuscular HGB Conc 32.8 g/dL (30-55); Mean Corpuscular Hemoglobin 25.6 pg (27-33); Mean Corpuscular Volume 78.2 fl (85-98); Mean Platelet Volume 11.9 fL (7.4-10.4); Platelet Count 205 10^3/cmm (157-399); Red Blood Count 3.94 10^6/uL (3.85-5.65); Red Cell Distribution Width 14.3 % (12.1-15.1); White Blood Count 13.56 10^3/uL (3.29-11.43)
[2024-01-07] MEDS: docusate sodium 100 mg Capsule PO (20:31)
--- NOTE | 2024-01-07 21:02 | PC.NURSE ---
Nurse given in report that patient has tooth pain and visible not on left side of the face cheek region. Assessed at 0831. Patient noted pain to be 8/10. Pain medicine given at this at this time. Patient reported to have had this tooth pain for weeks and has a dentist appointment made for the tooth pain.
[2024-01-08] MEDS: HYDROcodone-acetaminophen 5-325 mg Tablet PO ×2 (02:04→08:11)
[2024-01-08 04:00] VITALS: BP 107/70; PULSE 62; RESP 18; TEMP 36.6
--- NOTE | 2024-01-08 07:34 | P.DS_ITS ---
Discharge Providers AESTHETICS INSTRUCTOR Date of Admission: 01/07/24 03:05 Date of Discharge: 01/08/24 Attending Provider at Admission: Marin Barnard MD Attending Provider at Discharge: Marin Barnard MD Primary Care Provider: Александр Lora MD Diagnoses at Discharge Discharge Diagnosis (1) 39 weeks gestation of : Status: Acute (2) Spontaneous vaginal delivery: Status: Acute (3) Dental abscess: Details from hospital stay: Patient developed a dental abscess and needs antibiotics prior to dental evaluation. Will start Augmentin. Status: Acute Reason for Visit Reason for Visit: Contractions Hospital Course Hospital Course This is a 23-year-old G5, P4 that presented at 39 weeks with contractions. The patient was dilated to 5 cm on arrival. The patient progressed as expected to complete dilation. The patient delivered a viable infant female vaginally without any complications. care has been unremarkable. Patient has developed a abscess in her left lower drawl. Patient was supposed to see a dentist yesterday but had to reschedule due to delivery of next week. Information Peripartum Data: Infant Delivery Method: Vaginal Physical Exam Narrative: doing well this morning. no concerns. Requesting discharge home. Const: COMMON NORMALS: no acute distress, patient oriented x3, no limitations, healthy appearing, alert and well nourished GENERAL APPEARANCE: cooperative, comfortable, well kempt and well developed ORIENTATION/CONSCIOUSNESS: Yes awake, Yes oriented to person, Yes oriented to place and Yes oriented to time Resp: COMMON NORMALS: normal respiratory effort and clear to auscultation bilaterally AUSCULTATION: clear to auscultation bilaterally GI: COMMON NORMALS: Soft to palpation (Uterus firm and below umbilicus) and non-tender PALPATION: Yes Soft to palpation (Uterus firm and below umbilicus) Extremity: COMMON NORMALS: no calf tenderness Neuro: COMMON NORMALS: patient oriented x3 SENSORIUM/ORIENTATION: Yes alert, Yes oriented to person, Yes oriented to place and Yes oriented to time Psych: APPEARANCE: Yes well kempt Urinary Catheter Management: Jones: Cath Placed During This Visit: yes, but has since been removed by the nurse Reason for Continuing Indwelling Catheter: Decision to DC Catheter Urinary Catheter Date of Insertion: 01/07/24 Urinary Catheter Time of Insertion: 04:15 Date Urinary Catheter Removed: 01/07/24 Time Urinary Catheter Discontinued: 05:46 History History History 5 Term 3 0 Miscarriages/Ectopic 1 Living Children 3 Discharge Data Studies Completed and Pending Laboratory Results WBC 13.56 10^3/uL (3.29-11.43) H 01/07/24 18:15 RBC 3.94 10^6/uL (3.85-5.65) 01/07/24 18:15 Hgb 10.10 g/dL (11.27-16.99) L 01/07/24 18:15 Hct 30.8 % (36-47) L 01/07/24 18:15 MCV 78.2 fl (85-98) L 01/07/24 18:15 MCH 25.6 pg (27-33) L 01/07/24 18:15 MCHC 32.8 g/dL (30-55) 01/07/24 18:15 RDW 14.3 % (12.1-15.1) 01/07/24 18:15 Plt Count 205 10^3/cmm (157-399) 01/07/24 18:15 MPV 11.9 fL (7.4-10.4) H 01/07/24 18:15 Neut % (Auto) 71.5 % 01/07/24 02:57 Lymph % (Auto) 21.2 % 01/07/24 02:57 [place] % (Auto) 6.4 % 01/07/24 02:57 Eos % (Auto) 0.3 % 01/07/24 02:57 Baso % (Auto) 0.2 % 01/07/24 02:57 Neut # (Auto) 8.99 10^3/uL (1.8-7.7) H 01/07/24 02:57 Lymph # (Auto) 2.7 10^3/uL (0.8-4.8) 01/07/24 02:57 [place] # (Auto) 0.8 10^3/uL (0.2-0.9) 01/07/24 02:57 Eos # (Auto) 0.0 10^3/uL (0.0-0.8) 01/07/24 02:57 Baso # (Auto) 0.0 10^3/uL (0.0-0.1) 01/07/24 02:57 Nucleated RBC % (auto) 0 % 01/07/24 02:57 Nucleated RBCs # 0.0 /100WBC 01/07/24 02:57 Blood Type O Positive 01/07/24 02:57 Rho(D) Type Rh positive 01/07/24 02:57 Antibody Screen Negative 01/07/24 02:57 Vitals Last Vital Signs Temp 97.8 F 01/08/24 04:00 Pulse 62 01/08/24 04:00 Resp 18 01/08/24 04:00 BP 107/70 01/08/24 04:00 Pulse Ox 100 01/07/24 21:10 O2 Del Method Room Air 01/07/24 21:10 Results Labs OB ([facility]): Blood Type O Positive 01/07/24 Antibody Screen Negative 01/07/24 Hct 30.8 % (36-47) L 01/07/24 Hgb 10.10 g/dL (11.27-16.99) L 01/07/24 Rho(D) Type Rh positive 01/07/24 Plt Count 205 10^3/cmm (157-399) 01/07/24 HCG, Qual Positive (Negative) H 05/12/23 Discharge Plan Discharge Patient Disposition: Home Condition: Stable Prescriptions: New amoxicillin-pot clavulanate 875-125 mg tablet 1 tab PO BID Qty: 14 0RF Discharge Orders: Discharge Order (Routine); Ordered 01/08/24 Ordered By: Jhoan Shabazz Referrals: Marin Barnard MD [Physician] - 6 Weeks Discharge Diet: Usual diet Discharge Activity: Limit activity as instructed Patient Instructions: Depression (DC), Opioid Safety (DC), Preeclam psia and Eclampsia After Delivery (GEN), Hemorrhage (DC), OB Discharge Report, OB Food/Drug Interaction Guide, OB Care at Home, Opioid Safety, OB Vaginal Deliveries, Abnormal Bleeding Discharge Attestations AESTHETICS INSTRUCTOR Time Spent in Discharge Care*: less than 30 min Coding Level of Care Code Acute Code for Chg Fwd Diagnoses 39 weeks gestation of Z3A.39 Spontaneous vaginal delivery O80 Dental abscess K04.7
--- NOTE | 2024-01-08 08:00 | ANE.PACU2 ---
Inpatient post-anesthesia follow up: Airway intact: Yes Vital signs: Temperature 97.8 F Pulse Rate 66 Respiratory Rate 16 Blood Pressure 128/82 Pulse Oximetry 98 Oxygen Delivery Me thod Room Air Oxygen Flow Rate Fraction of Inspir ed Oxygen Hydration adequate: Yes Nausea and vomiting: No Pain level: 1 Mental status: Baseline Epidural Start/End: Epidural Start Date: 01/07/24 Epidural Start Time: 03:38 Epidural End Date: 01/07/24 Epidural End Time: 08:00
[2024-01-08] MEDS: PRENATAL VIT NO.130/IRON/FOLIC 1 EACH TABLET PO (08:11)
[2024-01-08] MEDS: ibuprofen 800 mg tablet PO (08:11)
[2024-01-08] MEDS: docusate sodium 100 mg Capsule PO (08:12)
[2024-01-08 09:15] VITALS: BP 128/82; PULSE 66; RESP 16; TEMP 36.6; O2SAT 98
[2024-01-08 11:06] VITALS: BP 128/82; PULSE 66; RESP 16; TEMP 36.6; O2SAT 98
== END 2024-01-08 09:50 | disposition home or self-care (01) | DRG 807 ==
LOC: OPOB 03:05 → OBGYN 03:05
PROVIDERS: Admitting Provider Family Medicine; PCP Family Medicine Adult Medicine; Visit Provider Family Medicine
DX: O75.89 Other specified complications of labor and delivery (principal); Z37.0 Single live birth; K04.7 Periapical abscess without sinus; Z3A.39 39 weeks gestation of pregnancy
CPT/HCPCS: 36415; 51702; 59409; 85025; 85027; 86850; 86900; 99211; J2590; J2795; J7120; J7121

== ENCOUNTER 2024-08-25 16:43 | Emergency (ER) | payer BC, MEDICAID, SELFPAY ==
[2024-08-25 17:14] VITALS: BP 107/67; PULSE 77; RESP 17; TEMP 36.7; O2SAT 100; BMI 34.7
[2024-08-25 17:36] LABS: Basophils % 0.1 %; Eosinophils # 0.1 10^3/uL (0.0-0.8); Eosinophils % 1.5 %; Hematocrit 36.2 % (36-47); Lymphocytes # 2.2 10^3/uL (0.8-4.8); Lymphocytes % 32.3 %; Mean Corpuscular HGB Conc 34.3 g/dL (30-55); Mean Corpuscular Hemoglobin 28.7 pg (27-33); Mean Corpuscular Volume 83.8 fl (85-98); Mean Platelet Volume 11.3 fL (7.4-10.4); Monocytes # 0.6 10^3/uL (0.2-0.9); Monocytes % 8.6 %; Neutrophils # 3.89 10^3/uL (1.8-7.7); Neutrophils % 56.6 %; Nucleated Red Blood Cells % 0 %; Platelet Count 211 10^3/cmm (157-399); Red Blood Count 4.32 10^6/uL (3.85-5.65); Red Cell Distribution Width 13.2 % (12.1-15.1); White Blood Count 6.87 10^3/uL (3.29-11.43)
[2024-08-25 17:59] LABS: Alanine Aminotransferase 14 U/L (0-33); Albumin Level 3.8 g/dL (3.5-5.2); Alkaline Phosphatase 107 U/L (35-105); Anion Gap 17.7 (5-19); Aspartate Amino Transferase 15 U/L (0-32); Blood Urea Nitrogen 8 mg/dL (6-20); Calcium 9.2 mg/dL (8.5-10.5); Carbon Dioxide 22 mmol/L (22-29); Chloride 100 mmol/L (98-107); Creatinine Clr Calc Pharmacy 202.5293; Globulin 3.2 g/dL (1.3-4.6); Glomerular Filtration Rate 150.3 mL/min (90-130); Glucose 82 mg/dL (65-115); Osmolality Calculated 279 mOsm/kg (285-295); Potassium 3.7 mmol/L (3.5-5.1); Sodium 136 mmol/L (136-145); Total Bilirubin 0.3 mg/dL (0.15-1.2)
--- NOTE | 2024-08-25 19:50 | USR_ITS ---
PROCEDURE INFORMATION: Exam: US Duplex Artery or Vein of the Abdominal and/or Reproductive Organs, Limited Ovaries Exam date and time: 08/25/2024 8:38 PM Clinical indication: complicated by abdominal or pelvic pain; Generalized abdominal pain; Second trimester (14 weeks 0 days to 27 weeks 6 days); Gestational age or lmp: 17w 6 d by lmp; ; G6-p4-a1-l4 presenting with generalized lower pelvic pain today. No vaginal bleed; Additional info: Pelvic pain, 18 weeks preg TECHNIQUE: Imaging protocol: Real-time duplex ultrasound scan of the arterial or venous flow with douglas scale, color Doppler flow and spectral waveform analysis with image documentation. Limited duplex exam focused on the ovaries. Duplex exam was performed to evaluate for torsion and other vascular conditions. COMPARISON: No relevant prior studies available. FINDINGS: Right ovary/adnexa: Normal arterial or venous Doppler waveforms in the ovary. No ovarian torsion. Left ovary/adnexa: Normal arterial or venous Doppler waveforms in the ovary. No ovarian torsion. PROCEDURE INFORMATION: Exam: US After First Trimester, Transabdominal Exam date and time: 08/25/2024 8:38 PM Age: 24 years old Clinical indication: complicated by abdominal or pelvic pain; Generalized abdominal pain; Second trimester (14 weeks 0 days to 27 weeks 6 days); Gestational age or lmp: 17w 6 d by lmp; ; G6-p4-a1-l4 presenting with generalized lower pelvic pain today. No vaginal bleed; Additional info: Pelvic pain, 18 weeks preg LABS AND CLINICAL REPORTS: Choriogonadotropin in serum (Serum HCG): 21438 mIU/mL Last menstrual period start date: 04/22/2024 Gestational age (Established): 17 w 6 d Estimated due date (Established): 01/27/2025 TECHNIQUE: Imaging protocol: Real-time transabdominal obstetrical ultrasound of the maternal pelvis and a second or third trimester with image documentation. COMPARISON: US OB >= 14 weeks fetus [id number] 08/25/2023 10:27 AM FINDINGS: Gestation: Single live intrauterine gestation. heart rate: 144 bpm presentation and position: Cephalic Placenta: Posterior grade 1 placenta without previa. Amniotic fluid (Qualitative): Amniotic fluid volume is normal. Amniotic fluid index: RAMIRO is 15.77 cm. ANATOMY: midline falx: midline falx is normal. cerebellum: cerebellum is normal. lateral ventricles: lateral ventricles are normal. cisterna magna: cisterna magna is normal. choroid plexus: choroid plexus is normal. face: Obscured. heart four-chamber view, heart size and position: heart four-chamber view, size, and position are normal. heart right ventricular outflow tract: right ventricular outflow tract is normal. heart left ventricular outflow tract: left ventricular outflow tract is normal. situs: situs is normal. kidneys: kidneys are normal. stomach: stomach is normal. urinary bladder: bladder is normal. spine: No visualized abnormalities of spine. Umbilical cord and insertion: umbilical cord insertion site into the abdomen is normal. 3-vessel umbilical cord is seen. upper limbs: No visualized abnormalities of arms/hands. lower limbs: legs and feet: No visualized abnormalities of legs/feet. external genitalia: Obscured. BIOMETRY: Gestational age (AUA): 18 w 1 d Estimated due date (AUA): 01/25/2025 Estimated weight: 231.82 g. EFW by AC, BPD, FL, HC, [place] 1985 Biparietal diameter (BPD): 3.83 cm. EGA (BPD) is 17 w 5 d. 41.6 % percentile Head circumference (HC): 15.53 cm. EGA (HC) is 18 w 3 d. 72.7 % percentile Abdominal circumference (AC): 12.68 cm. EGA (AC) is 18 w 2 d. 62.1 % percentile Femur length (FL): 2.71 cm. EGA (FL) is 18 w 2 d. 60.4 % percentile HC/AC: 1.22. (Normal range: 1.08 - 1.27) FL/HC: 17.45. (Normal range: 15.84 - 18.04) FL/BPD: 70.76 FL/AC: 21.37 MATERNAL: Uterus: Uterus measures 17.95 cm x 11.89 cm x 8.1 cm. Cervix: Cervical length measures 5.5 cm. Closed. Right ovary/adnexa: Right ovary measures 2.6 cm x 2.2 cm x 1.3 cm. Right ovarian volume is 4 mL. Left ovary/adnexa: Left ovary measures 3.2 cm x 2.1 cm x 2.9 cm. Left ovarian volume is 10.1 mL. Intraperitoneal space: No intraperitoneal free fluid. US/US OB >= 14 weeks fetus [id number] IMPRESSION: Normal duplex of the maternal ovaries. No evidence of ovarian torsion. IMPRESSION: 1. Single live intrauterine gestation. 2. Full details above. At this time there is no focal abnormality identified.
[2024-08-25 20:29] LABS: Bilirubin Urine Negative (Negative); Blood Urine Negative (Negative); Glucose Urine UA Negative (Normal); Ketones Urine Negative (Negative); Leukocyte Esterase Urine Trace (Negative); Nitrate Urine Negative (Negative); Protein Urine Negative (Negative); Specific Gravity, Urine 1.022 (1.005-1.030); Urine Appearance Clear (CLEAR); Urine Color Yellow (Yellow)
[2024-08-25 20:31] LABS: Add Urine Microscopic? YES; Bacteria Urine 1+ /hpf; Hyaline Casts Urine 0-4 /lpf; RBC Urine 0-2 /hpf (0-2); WBC Urine 0-5 /hpf (0-5)
--- NOTE | 2024-08-25 20:51 | PC.NURSE ---
this nurse did heart tones on pt. Pt in supine position. At times the Doppler picked up 135 heart tone rate but this nurse was unable to get a steady tone rate.
[2024-08-25 21:24] VITALS: BP 106/73; PULSE 97; O2SAT 93
[2024-08-25 21:30] VITALS: BP 106/68; PULSE 82; O2SAT 96
--- NOTE | 2024-08-25 22:00 | ED_ITS ---
HPI - 2 General: Chief complaint: Abdominal Pain Stated complaint: 17 weeks preg, abd pain Time Seen by Provider: 08/25/24 19:31 History of Present Illness: This patient is a 24-year-old white female who presents to the emergency department with pelvic cramping. She states she is about 18 weeks . The cramping started yesterday. She has not had any vaginal bleeding or discharge. No dysuria or hematuria. Date of Last Menstrual Period: 04/04/24 Related Data Home Medications ?Medication ?Instructions ?Recorded ?Confirmed No Known Home Medications 06/13/2406/29 Previous Rx's ?Medication ?Instructions ?Recorded amoxicillin 875 mg-potassium 1 tab PO BID #14 tabs clavulanate 125 mg tablet Allergies Allergy/AdvReac Type Severity Reaction Status Date / Time No Known Allergies Allergy Verified 07/18/24 16:21 Review of Systems 2 General: Reports: 10 or more systems reviewed and unremarkable except in HPI and below : Reports: pelvic pain PFSH ED 2 PFSH: Medical History Hypertension Anxiety and depression Surgical History No history of previous surgery Family History Grandmother Ovarian cancer maternal, diagnosed at age 40 Family/Other Breast cancer Maternal aunt, diagnosed in her 50s Patient denies medical problems Denies family history of: Hypertension, Diabetes, Heart Disease, Stroke, Hypercholesterolemia, Thyroid Problems, Uterine Cancer, Colon Cancer Social History Smoking and tobacco/nicotine status: current every day tobacco/nicotine user Alcohol intake: never Substance/Drug Use: never Female Reproductive History: Date of last menstrual period: 04/04/24 Physical Exam 2 Const: COMMON NORMALS: no acute distress, patient oriented x3 and no limitations GENERAL APPEARANCE: cooperative and comfortable HENMT: COMMON NORMALS: normocephalic, atraumatic, Normal nasal mucous membranes and turbinates present, moist oral mucous membranes and oropharynx normal HEAD & SCALP: normal to inspection, normocephalic and atraumatic F RAYMOND & SINUS: normal facial exam NOSE: Normal nasal mucous membranes and turbinates present Eye: COMMON NORMALS: Equal, round and reactive pupils present, EOMs intact bilaterally and conjunctivae normal GENERAL EYE: appearance normal, both eyes and all related structures CONJUNCTIVA: Yes conjunctivae normal PUPIL: Yes Equal, round and reactive pupils present Neck/C-Spine: COMMON NORMALS: supple and no JVD Chest: COMMONS NORMALS: normal inspection of the chest Resp: COMMON NORMALS: normal respiratory effort and clear to auscultation bilaterally AUSCULTATION: clear to auscultation bilaterally Cardio: COMMON NORMALS: no JVD, regular rate, regular rhythm, No gallops present (Cardio), No murmurs present (Cardio) and No rub (Cardio) RATE: r egular rate RHYTHM: regular rhythm GI: COMMON NORMALS: Normal to inspection, nondistended, normoactive bowel sounds present, Soft to palpation and non-tender AUSCULTATION: Yes normoactive bowel sounds PALPATION: Yes Soft to palpation : COMMON NORMALS: Yes no CVA tenderness BLADDER/KIDNEY EXAM: Yes no CVA tenderness Back/Pelvis: COMMON NORMALS: no CVA tenderness and thoracic and lumbar spine normal to inspection Extremity: COMMON NORMALS: normal to inspection Neuro: COMMON NORMALS: patient oriented x3 and CN's II-XII intact bilaterally Psych: COMMON NORMALS: mental status grossly normal, Normal thought process present and cooperative THOUGHT PROCESS: Normal thought process present Skin: COMMON NORMALS: no rashes or lesions noted, turgor normal and no jaundice GENERAL SKIN EXAM: no rashes or lesions noted and turgor normal Course 2 Vital Signs: Vital signs: Vital Signs Temperature 98.1 F 08/25/24 17:14 Pulse Rate 93 08/25/24 22:04 Respiratory Rate 17 08/25/24 17:14 Blood Pressure 106/86 08/25/24 22:04 Pulse Oximetry 83 L 08/25/24 22:04 Oxygen Delivery Me thod Room Air 08/25/24 21:30 MDM - OB/Uterine Contractions Medical Decision Making CBC and CMP were normal. Quantitative hCG level was 13,384. This is within normal range for 18 weeks gestation. Urine analysis was normal. The pelvic ultrasound was read by the radiologist as normal. I recommended patient contact her automotive engineering technician tomorrow to schedule a recheck for soon as possible. She was discharged in stable condition. Lab Data 08/25/24 17:27 08/25/24 17:27 Radiology Impressions Ultrasound 08/25/24 19:50 IMPRESSION: Normal duplex of the maternal ovaries. No evidence of ovarian torsion. IMPRESSION: 1. Single live intrauterine gestation. 2. Full details above. At this time there is no focal abnormality identified. Laboratory Results WBC 6.87 10^3/uL (3.29-11.43) 08/25/24 17: RBC 4.32 10^6/uL (3.85-5.65) 08/25/24 17: Hgb 12.40 g/dL (11.27-16.99) 08/25/24 17: Hct 36.2 % (36-47) 08/25/24 17: MCV 83.8 fl (85-98) L 08/25/24 17: MCH 28.7 pg (27-33) 08/25/24 17: MCHC 34.3 g/dL (30-55) 08/25/24 17: RDW 13.2 % (12.1-15.1) 08/25/24 17: Plt Count 211 10^3/cmm (157-399) 08/25/24 17: MPV 11.3 fL (7.4-10.4) H 08/25/24 17: Neut % (Auto) 56.6 % 08/25/24 17: Lymph % (Auto) 32.3 % 08/25/24 17: Mower % (Auto) 8.6 % 08/25/24 17: Eos % (Auto) 1.5 % 08/25/24 17: Baso % (Auto) 0.1 % 08/25/24 17: Neut # (Auto) 3.89 10^3/uL (1.8-7.7) 08/25/24 17: Lymph # (Auto) 2.2 10^3/uL (0.8-4.8) 08/25/24 17: Mower # (Auto) 0.6 10^3/uL (0.2-0.9) 08/25/24 17: Eos # (Auto) 0.1 10^3/uL (0.0-0.8) 08/25/24 17: Baso # (Auto) 0.0 10^3/uL (0.0-0.1) 08/25/24 17:27 Nucleated RBC % (auto) 0 % 08/25/24 17: Nucleated RBCs # 0.0 /100WBC 08/25/24 17:27 Sodium 136 mmol/L (136-145) 08/25/24 17: Potassium 3.7 mmol/L (3.5-5.1) 08/25/24 17: Chloride 100 mmol/L (98-107) 08/25/24 17: Carbon Dioxide 22 mmol/L (22-29) 08/25/24 17: Anion Gap 17.7 (5-19) 08/25/24 17: BUN 8 mg/dL (6-20) 08/25/24 17: Creatinine 0.5 mg/dL (0.5-0.9) 08/25/24 17:27 GFR Calculation 150.3 mL/min (90-130) H 08/25/24 17:27 Glucose 82 mg/dL (65-115) 08/25/24 17: Calculated Osmolality 279 mOsm/kg (285-295) L 08/25/24 17:27 Calcium 9.2 mg/dL (8.5-10.5) 08/25/24 17: Total Bilirubin 0.3 mg/dL (0.15-1.2) 08/25/24 17: AST 15 U/L (0-32) 08/25/24 17: ALT 14 U/L (0-33) 08/25/24 17:27 Alkaline Phosphatase 107 U/L (35-105) H 08/25/24 17: Total Protein 7.0 g/dL (6.6-8.7) 08/25/24 17: Albumin 3.8 g/dL (3.5-5.2) 08/25/24 17: Globulin 3.2 g/dL (1.3-4.6) 08/25/24 17:27 Ser , Semi-Qnt 25794.00 mIU/mL 08/25/24 17:27 Urine Color Yellow (Yellow) 08/25/24 20:15 Urine Appearance Clear (CLEAR) 08/25/24 20:15 Urine pH 6.0 (5-7) 08/25/24 20:15 Ur Specific [place] 1.022 (1.005-1.030) 08/25/24 20:15 Urine Protein Negative (Negative) 08/25/24 20:15 Urine Glucose (UA) Negative (Normal) 08/25/24 20:15 Urine Ketones Negative (Negative) 08/25/24 20:15 Urine Blood Negative (Negative) 08/25/24 20:15 Urine Nitrate Negative (Negative) 08/25/24 20:15 Urine Bilirubin Negative (Negative) 08/25/24 20:15 Urine Urobilinogen 1.0 mg/dL (Negative) 08/25/24 20:15 Ur Leukocyte Esterase Trace (Negative) A 08/25/24 20:15 Urine RBC 0-2 /hpf (0-2) 08/25/24 20:15 Urine WBC 0-5 /hpf (0-5) 08/25/24 20:15 Ur Squamous Epith Cells 11-20 /hpf (0-5) H 08/25/24 20:15 Amorphous Sediment Not Reportable 08/25/24 20:15 Urine Bacteria 1+ /hpf (NONE) H 08/25/24 20:15 Hyaline Casts 0-4 /lpf H 08/25/24 20:15 All radiology interpretation(s) finalized by discharge Discharge Plan Discharge Patient Disposition: Home Clinical Impression: Pelvic pain affecting Qualifiers: Trimester: second trimester Qualified Code(s): O26.892 - Other specified related conditions, second trimester Condition: Stable Prescriptions: No Action amoxicillin-pot clavulanate 875-125 mg tablet 1 tab PO BID Qty: 14 0RF No Known Home Medications Discharge Orders: Discharge ED (Routine); Ordered 08/25/24 Ordered By: Weston Kang Referrals: Александр Lora MD [Primary Care Provider, Family Practice] Patient Instructions: Pelvic Pain in Women (ED) Activity Restrictions/Additional Instructions: Contact your automotive engineering technician tomorrow to schedule an appointment for recheck. 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
[2024-08-25 22:04] VITALS: BP 106/86; PULSE 93; O2SAT 83
== END 2024-08-25 22:06 | disposition home or self-care (01) ==
PROVIDERS: Family Medicine; Emergency Provider Emergency Medicine; PCP Family Medicine Adult Medicine
DX: O26.892 Other specified pregnancy related conditions, second trimester (principal); R10.2 Pelvic and perineal pain; Z3A.18 18 weeks gestation of pregnancy; Z72.0 Tobacco use; I10 Essential (primary) hypertension
CPT/HCPCS: 36415; 76805; 80053; 81001; 84702; 85025; 99284

== ENCOUNTER 2025-01-24 21:05 | Inpatient (IN) | payer BC, MEDICAID, SELFPAY ==
[2025-01-24 19:19] VITALS: BP 126/74; PULSE 94
[2025-01-24 19:40] VITALS: BP 113/67; PULSE 112
[2025-01-24 20:00] VITALS: BMI 38.0
[2025-01-24 20:11] VITALS: BP 121/60; PULSE 94
[2025-01-24 20:21] LABS: Hematocrit 33.4 % (36-47); Hemoglobin 10.90 g/dL (11.27-16.99); Mean Corpuscular HGB Conc 32.6 g/dL (30-55); Mean Corpuscular Hemoglobin 24.4 pg (27-33); Mean Corpuscular Volume 74.9 fl (85-98); Nucleated Red Blood Cells % 0 %; Platelet Count 253 10^3/cmm (157-399); Red Blood Count 4.46 10^6/uL (3.85-5.65); White Blood Count 7.15 10^3/uL (3.29-11.43)
[2025-01-24 21:19] VITALS: BP 131/74; PULSE 82
[2025-01-24 23:04] VITALS: BP 127/70; PULSE 80
[2025-01-25] VITALS (40 sets, daily range): BP systolic 88–167; BP diastolic 50–77; PULSE 54–122; RESP 16–18; TEMP 36.8–36.9; O2SAT 87–100
--- NOTE | 2025-01-25 04:30 | ANES.PREANE2 ---
Pre-Anesthetic Assessment Height/Weight: Height 1.68 m Weight 107.048 kg Pulse BP Pulse Ox O2 Del Method 103 H 167/77 100 Room Air 01/25/25 05:15 01/25/25 05:15 01/25/25 05:15 01/25/25 02:22 Preop Diagnosis: IUP labor epidural Familial anesthetic complications: none Was Beta Arron taken within 24 hours: N/A Was Clonidine taken within 24 hours: N/A Social No alcohol and No tobacco Exam alert and oriented x 3 Airway Submandibular: within normal limits Cervical ROM: within normal limits Mallampati: Class II Dentition: full History/ROS No significant complaints GI Gastroesophageal Reflux Disease Anesthetic Plan ASA status: 2 Anesthesia: Anesthesia Evaluation and Regional (specify below) Risk of > 500 ml blood loss (7ml/kg in children): Yes, adequate IV access and fluids planned Medications/Allergies Home Medications ?Medication ?Instructions ?Recorded ?Confirmed ?Last Taken ?Type famotidine 20 mg tablet (Pepcid) 1 mg PO DIRECTED PRN Heartburn 01/24/25 01/24/25 01/23/25 History [id number] 1 mg 1 tab PO DAILY 01/24/25 01/24/25 01/24/25 History tablet Allergies Allergy/AdvReac Type Severity Reaction Status Date / Time No Known Allergies Allergy Verified 01/24/25 20:06 Current Medications Generic Name Dose Route Start Last Admin Trade Name Freq PRN Reason Stop Dose Admin Calcium Carbonate 1,000 mg 01/24/25 20:10 01/25/25 01:31 Calcium Carbonate 500 Mg Chew Tablet PO 1,000 mg Q4H PRN Administration Heartburn/Indigestion (Use 1st) Dextrose/Lactated Ringer's 1,000 mls @ 125 mls/hr 01/24/25 20:15 01/25/25 03:57 Dextrose 5%-Lactated Ringers IV Not Given .Q8H JUAN MANUEL Sodium Chloride 1,000 mls @ 999 mls/hr 01/25/25 03:32 01/25/25 05:04 Sodium Chloride 0.9% IV 999 mls/hr .Q1H1M PRN Administration See label comments PFSH Anesthesia Medical History (Updated 01/25/25 @ 04:48 by Marin Barnard MD) Hypertension Anxiety and depression Surgical History No history of previous surgery Family History Grandmother Ovarian cancer maternal, diagnosed at age 40 Family/Other Breast cancer Maternal aunt, diagnosed in her 50s Patient denies medical problems Denies family history of: Hypertension, Diabetes, Heart Disease, Stroke, Hypercholesterolemia, Thyroid Problems, Uterine Cancer, Colon Cancer Social History Smoking and tobacco/nicotine status: current every day tobacco/nicotine user Alcohol intake: never Substance/Drug Use: never Female Reproductive History : 6 Data Anesthesia 01/24/25 20:00 Short CBC 01/24/25 Range/Units 20:00 WBC 7.15 (3.29-11.43) 10^3/uL Hgb 10.90 L (11.27-16.99) g/dL Hct 33.4 L (36-47) % MCV 74.9 L (85-98) fl Plt Count 253 (157-399) 10^3/cmm Neut % (Auto) 58.8 % Neut # (Auto) 4.20 (1.8-7.7) 10^3/uL Blood Bank 01/24/25 20:00 Blood Type O Positive Rho(D) Type Rh positive Antibody Screen Negative
--- NOTE | 2025-01-25 04:42 | PM.OPHPUD ---
Labor & Delivery H&P Update Date of Procedure: January 25, 2025 Date H&P Performed: 01/24/25 Changes to previous documentation: Spontaneous rupture of membrane Admission Diagnosis: 25-year-old 6 para 4-0-1-4 at 39 weeks estimated gestational age presenting with spontaneous rupture membranes Planned procedure: Spontaneous vaginal delivery Other information: The patient is a pleasant 25-year-old female who presents to the hospital today with grossly ruptured membranes. Her membranes ruptured around 6 PM on 01/24.she came to the hospital shortly thereafter. She expressed a desire to allow her body to go naturally to labor and not to be augmented despite her spontaneous rupture membranes. We agreed to hold off on any kind of augmentation until 4 AM the following morning. Since that time she has began to have progressively more painful contractions and is making cervical change. has been unremarkable. She has had consistent care. Her blood type is O+. Her antibody screen is negative. She passed her glucose screen. She is GBS negative. She is rubella immune. The remainder of her infectious disease profile is within normal limits. Related Problem List Diagnoses 1. 39 weeks gestation of : I anticipate routine labor and delivery. 2. Spontaneous rupture of membranes: A&P Assessment and plan 1. 39 weeks gestation of : Status: Acute 2. Spontaneous rupture of membranes: Status: Acute PDMP PDMP Reviewed: Not Reviewed
[2025-01-25] MEDS: ROPivacaine premix 200 MG/100 ML PREMIX 10 MG EPIDURAL (05:15)
--- NOTE | 2025-01-25 05:18 | ANES.PROC ---
Anesthesia Procedures Procedure/Date: 01/25/25 Epidural: Time Out Performed: Yes Consents Signed: Procedure Consent Consent: from patient, risks and benefits reviewed and patient agrees to proceed Lumbar Level: L3-L4 Epidural position: sitting Epidural procedure: sterile prep of area, 1% lidocaine to numb the area, 18 g needle, negative for paresthesia passed, test dose given, 1.5% xylocaine 1:200k epi, placed PCEA, no systemic response, sterile dressing applied and 0.2% Ropiavacaine @ mls/hr (13) Additional Comments: ROBBY at 7.5. taped at 13 negative heme/CSF. pt complete at end of epidural placement. bolus of 10ml 2% PF lido given.
[2025-01-25] MEDS: oxytocin 30 UNIT/500 ML BAG 600 UNIT IV (05:23)
--- NOTE | 2025-01-25 05:28 | PM.DELIVERY ---
Delivery Note: Date of delivery: January 25, 2025 Pre-delivery diagnoses: 25-year-old 6 para 4-0-1-4 at 39 weeks estimated gestational age presenting with spontaneous rupture membranes Post-delivery diagnoses: Status post spontaneous vaginal delivery Procedure: Spontaneous vaginal delivery Delivering Physician: Marin Barnard Estimated blood loss (mL): 50 Pre-Delivery Course: The patient presented to the hospital with spontaneous rupture membranes. Initially she is having contractions but no pain. Over time the pain gradually increased. An epidural was attempted but was not adequate. She progressed to complete. Delivery: DELIVERY: The patient progressed to complete without difficulty. She delivered a female with a weight of 7 pounds 15 ounces with Apgars of 9, 9. The baby was delivered from the WONG position and placed on the mother's abdomen. The cord was then clamped and cut approximately 1 minute after delivery. There was a nuchal cord x 1. The baby was delivered through the cord. There was no meconium. The placenta and 3 vessel cord were delivered intact shortly thereafter. The perineum and vaginal vault were carefully examined. No lacerations were noted. Both the mother and the baby were in stable condition. Post-Delivery Status: Good History History History 6 Term 5 0 Miscarriages/Ectopic 1 Living Children 5 A&P Assessment and plan 1. 39 weeks gestation of : I anticipate routine care 2. Spontaneous rupture of membranes: 3. Spontaneous vaginal delivery: PDMP PDMP Reviewed: Not Reviewed Coding Level of Care Code Acute Code for Chg Fwd Diagnoses 39 weeks gestation of Z3A.39 Spontaneous rupture of membranes Spontaneous vaginal delivery O80
[2025-01-25] MEDS: PRENATAL VIT NO.130/IRON/FOLIC 1 EACH TABLET PO (08:04)
[2025-01-25 17:13] LABS: Hematocrit 31.6 % (36-47); Hemoglobin 10.40 g/dL (11.27-16.99); Mean Corpuscular HGB Conc 32.9 g/dL (30-55); Mean Corpuscular Hemoglobin 25.2 pg (27-33); Mean Corpuscular Volume 76.7 fl (85-98); Platelet Count 225 10^3/cmm (157-399); Red Blood Count 4.12 10^6/uL (3.85-5.65); White Blood Count 10.91 10^3/uL (3.29-11.43)
[2025-01-26 06:11] VITALS: BP 92/81; PULSE 56; RESP 15; O2SAT 98
[2025-01-26] MEDS: PRENATAL VIT NO.130/IRON/FOLIC 1 EACH TABLET PO (06:15)
--- NOTE | 2025-01-26 06:49 | P.DS_ITS ---
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 39 weeks gestation of : 2. Spontaneous rupture of membranes: 3. Spontaneous vaginal delivery: Reason for Visit Reason for Visit: possible srom Hospital Course Hospital Course The patient presented to the hospital with spontaneous rupture of membranes. She progressed without further augmentation. An epidural was placed just prior to delivery with questionable impact on her pain. She had an unremarkable s pontaneous vaginal delivery of a healthy appearing . The remainder of her hospital stay was relatively unremarkable. Her bleeding was within normal limits. Her pain was well-controlled. She bottle-fed her . There were no concerns. Information Peripartum Data: Infant Delivery Method: Vaginal Physical Exam Narrative: The patient is alert. She appears comfortable. Her heart has a regular rate and rhythm with no murmurs appreciated. Lungs are clear to auscultation bilaterally. Her fundus is firm and below the umbilicus. History History History 6 Term 5 0 Miscarriages/Ectopic 1 Living Children 5 Discharge Data Studies Completed and Pending Laboratory Results WBC 10.91 10^3/uL (3.29-11.43) 01/25/25 17:05 RBC 4.12 10^6/uL (3.85-5.65) 01/25/25 17:05 Hgb 10.40 g/dL (11.27-16.99) L 01/25/25 17:05 Hct 31.6 % (36-47) L 01/25/25 17:05 MCV 76.7 fl (85-98) L 01/25/25 17:05 MCH 25.2 pg (27-33) L 01/25/25 17:05 MCHC 32.9 g/dL (30-55) 01/25/25 17:05 RDW 14.2 % (12.1-15.1) 01/25/25 17:05 Plt Count 225 10^3/cmm (157-399) 01/25/25 17:05 MPV 12.0 fL (7.4-10.4) H 01/25/25 17:05 Neut % (Auto) 58.8 % 01/24/25 20:00 Lymph % (Auto) 30.9 % 01/24/25 20:00 [place] % (Auto) 8.7 % 01/24/25 20:00 Eos % (Auto) 1.1 % 01/24/25 20:00 Baso % (Auto) 0.1 % 01/24/25 20:00 Neut # (Auto) 4.20 10^3/uL (1.8-7.7) 01/24/25 20:00 Lymph # (Auto) 2.2 10^3/uL (0.8-4.8) 01/24/25 20:00 Tift # (Auto) 0.6 10^3/uL (0.2-0.9) 01/24/25 20:00 Eos # (Auto) 0.1 10^3/uL (0.0-0.8) 01/24/25 20:00 Baso # (Auto) 0.0 10^3/uL (0.0-0.1) 01/24/25 20:00 Nucleated RBC % (auto) 0 % 01/24/25 20:00 Nucleated RBCs # 0.0 /100WBC 01/24/25 20:00 Blood Type O Positive 01/24/25 20:00 Rho(D) Type Rh positive 01/24/25 20:00 Antibody Screen Negative 01/24/25 20:00 Vitals Last Vital Signs Temp 98.3 F 01/25/25 15:15 Pulse 56 L 01/26/25 06:11 Resp 15 01/26/25 06:11 BP 92/81 01/26/25 06:11 Pulse Ox 98 01/26/25 06:11 O2 Del Method Room Air 01/26/25 06:11 Results Labs OB ([facility]): Blood Type O Positive 01/24/25 Antibody Screen Negative 01/24/25 Hct, (36-47) 31.6 % L 01/25/25 Hgb, (11.27-16.99) 10.40 g/dL L 01/25/25 Rho(D) Type Rh positive 01/24/25 Plt Count, (157-399) 225 10^3/cmm 01/25/25 Ser , Semi-Qnt 80684.00 mIU/mL 08/25/24 HCG, Qual, (Negative) Positive H 05/12/23 Discharge Plan Discharge Patient Disposition: Home Condition: Stable Prescriptions: New ibuprofen 800 mg Tablet 800 mg PO TID Qty: 45 0RF Continued yolurukn-eao-Uv-FA 1 mg Tablet 1 tab PO DAILY Discontinued famotidine [Pepcid] 20 mg Tablet 1 mg PO DIRECTED PRN (Reason: Heartburn) Discharge Order = DC NOW: Discharge Order (Routine); Ordered 01/26/25 Ordered By: Marin Barnard Referrals: Marin Barnard MD [Physician, Family Practice] - 6 Weeks Discharge Diet: Usual diet Discharge Activity: Limit activity as instructed Patient Instructions: Depression (DC), Bleeding (DC), Preeclampsia and Eclampsia After Delivery (GEN), Hemorrhage (DC), OB Discharge Report, OB Food/Drug Interaction Guide, OB Care at Home, Opioid Safety, OB Vaginal Deliveries, Patient Portal & [place] Instructions 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
--- NOTE | 2025-01-26 08:00 | ANE.PACU2 ---
Inpatient post-anesthesia follow up: Airway intact: Yes Vital signs: Temperature 97.6 F Pulse Rate 57 Respiratory Rate 16 Blood Pressure 115/80 Pulse Oximetry 98 Oxygen Delivery Me thod Room Air Oxygen Flow Rate Fraction of Inspir ed Oxygen Hydration adequate: Yes Nausea and vomiting: No Pain level: 1 Mental status: Baseline Epidural Start/End: Epidural Start Date: 01/25/25 Epidural Start Time: 04:30 Epidural End Date: 01/25/25 Epidural End Time: 07:36
[2025-01-26 09:15] VITALS: BP 115/80; PULSE 57; RESP 16; TEMP 36.4
== END 2025-01-26 10:00 | disposition home or self-care (01) | DRG 560 ==
LOC: OPOB 21:05 → OBGYN 21:05
PROVIDERS: Admitting Provider Family Medicine; PCP Family Medicine Adult Medicine; Visit Provider Family Medicine
DX: O69.81X0 Labor and delivery complicated by cord around neck, without compression, not applicable or unspecified (principal); Z3A.39 39 weeks gestation of pregnancy; Z37.0 Single live birth
CPT/HCPCS: 36415; 59025; 59409; 83986; 85025; 85027; 86850; 86900; 99211; J2590; J2795; J7030; J9999